=== PATIENT | male | born 1935 | race Caucasian/White ===

== ENCOUNTER 2017-06-16 15:09 | Outpatient (CLI) | payer MEDICARE, OTHER ==
[2017-06-16 14:27] LABS: BASOPHILS % (AUTO) 0.7 %; EOSINOPHILS # (AUTO) 0.5 10^3/uL (0.0-0.7); EOSINOPHILS % (AUTO) 7.4 %; HCT - HEMATOCRIT 42.9 % (42.0-52.0); HGB - HEMOGLOBIN 14.4 g/dL (14.0-18.0); LYMPHOCYTES # (AUTO) 1.6 10^3/uL (1.5-3.5); LYMPHOCYTES % (AUTO) 25.7 %; MEAN CORPUSCULAR HEMOGLOBIN 30.6 pg (27.0-31.0); MEAN CORPUSCULAR HGB CONC 33.4 g/dL (32.0-36.0); MEAN CORPUSCULAR VOLUME 91.4 fL (80.0-94.0); MEAN PLATELET VOLUME 9.2 fL (7.4-11.4); MONOCYTES # (AUTO) 0.6 10^3/uL (0.0-1.0); MONOCYTES % (AUTO) 9.1 %; NEUTROPHILS # (AUTO) 3.6 10^3/uL (1.5-6.6); NEUTROPHILS % (AUTO) 57.1 %; NUCLEATED RED BLOOD CELLS AUTO 0.1 /100WBC; RED CELL DISTRIBUTION WIDTH 13.6 % (12.0-15.0); UNCORRECTED WHITE BLOOD COUNT 6.3 x10^3/uL; WHITE BLOOD COUNT 6.3 x10^3/uL (4.8-10.8)
[2017-06-16 14:58] LABS: ALBUMIN/GLOBULIN RATIO 1.1 (1.0-2.2); BUN - BLOOD UREA NITROGEN 40 mg/dL (6-20); CALCIUM 9.8 mg/dL (8.5-10.3); CARBON DIOXIDE - CO2 29 mmol/L (21-32); CHLORIDE 103 mmol/L (101-111); CHOL/HDL RATIO 4.7 (<5.0); CHOLESTEROL 170 mg/dL; CREATININE 1.5 mg/dL (0.6-1.2); GFR - MDRD 45 (>89); GLUCOSE 107 mg/dL (70-100); HDL CHOLESTEROL 36 mg/dL; LDL/HDL RATIO 2.6 (<3.6); POTASSIUM 4.8 mmol/L (3.5-5.0); SODIUM 138 mmol/L (135-145); TOTAL PROTEIN 7.7 g/dL (6.7-8.2); TRIGLYCERIDES 212 mg/dL; VLDL CHOLESTEROL 42 mg/dL
[2017-06-16 15:10] LABS: HEMOGLOBIN A1C 0.52 g/dL
== END 2017-06-16 15:10 | disposition home or self-care (01) ==
LOC: LAB.WCP 15:09
PROVIDERS: ATTEND Family Medicine
DX: E83.52 Hypercalcemia (principal); Z79.899 Other long term (current) drug therapy; N28.9 Disorder of kidney and ureter, unspecified; I10 Essential (primary) hypertension; E03.9 Hypothyroidism, unspecified; R73.9 Hyperglycemia, unspecified; E78.5 Hyperlipidemia, unspecified
CPT/HCPCS: 36415; 80053; 80061; 83036; 84443; 85025

== ENCOUNTER 2017-12-22 17:29 | Inpatient (IN) | payer MEDICARE, OTHER ==
[2017-12-22] MEDS ORDERED: ALBUTEROL NEB 2.5 MG/3 ML INH STA (17:55)
[2017-12-22] MEDS: IPRATROPIUM/ALBUTEROL 3 ML NEB INH PRN (18:02)
[2017-12-22] MEDS ORDERED: cefTRIAXone 2 GM in SODIUM CHLORIDE 0.9% MINIBAG 100 ML IV STA (18:12)
[2017-12-22] MEDS ORDERED: VANCOMYCIN INJ 1.5 GM in SODIUM CHLORIDE 0.9% 500 ML IV STA (18:12)
[2017-12-22] MEDS ORDERED: OSELTAMIVIR 75 MG CAPSULE PO STA (18:14)
--- NOTE | 2017-12-22 18:14 | ED Physician Documentation ---
PD HPI CHEST PAIN - Stated complaint Stated Complaint: WEAK/COUGH - Chief complaint Chief Complaint: Resp - History obtained from History obtained from: Patient - History of Present Illness Timing - onset: Other ( sick with flu. He's been sick for 5 days with cough/ bodyaches. No measured fevers.) Timing - details: Abrupt onset Recently seen: Not recently seen Review of Systems Ten Systems: 10 systems reviewed and negative Constitutional: reports: Chills. denies: Fever Nose: denies: Rhinorrhea / runny nose Throat: denies: Sore throat Respiratory: reports: Dyspnea, Cough GI: denies: Abdominal Pain, Vomiting, Diarrhea PD PAST MEDICAL HISTORY - Allergies Allergies/Adverse Reactions: Allergies Allergy/AdvReac Type Severity Reaction Status Date / Time morphine Allergy Hallucinati Verified 12/22/17 17:39 ons - Family History Family history: reports: Non contributory PD ED PE NORMAL - Vitals Vital signs reviewed: Yes - General General: Alert and oriented X 3, No acute distress - HEENT HEENT: PERRL, EOMI - Neck Neck: Supple, no meningeal sign, No bony TTP - Cardiac Cardiac: RRR, No murmur - Respiratory Respiratory: Other (Profound rhonchi both bases, mildly labored.) - Abdomen Abdomen: Soft, Non tender - Back Back: No CVA TTP, No spinal TTP - Derm Derm: Normal color, Warm and dry - Extremities Extremities: No edema, No calf tenderness / cord - Neuro Neuro: Alert and oriented X 3, Normal speech - Psych Psych: Normal mood, Normal affect Results - Vitals Vitals: Vital Signs - 24 hr 12/22/17 12/22/17 12/22/17 17:34 17:50 18:06 Temperature 36.7 C Heart Rate 71 78 Respiratory 18 18 Rate Blood Pressure 100/57 L O2 Saturation 78 L 96 Oxygen O2 Source Non-rebreather mask Oxygen Flow Rate 15 PD MEDICAL DECISION MAKING - ED course ED course: 82-year-old gentleman with with influenza exposure presents with dyspnea and significant hypoxemia into the 70s on room air and findings of bilateral pneumonia. He is cultured up and started on Tamiflu presumptively. Started on Rocephin, Zithromax, vancomycin. Spoke with Dr. Gale for admission at 6: 15 PM. Departure - Departure Disposition: [facility] DC/Xfer Clinical Impression: Influenza, Hypoxemia Pneumonia Qualifiers: Laterality: bilateral Lung location: lower lobe of lung Condition: Serious
--- NOTE | 2017-12-22 18:21 | XRAY Report ---
EXAM: CHEST RADIOGRAPHY EXAM DATE: 12/22/2017 05:58 PM. CLINICAL HISTORY: Dyspnea. COMPARISON: None. TECHNIQUE: 1 view. FINDINGS: Lungs/Pleura: There is reticular opacity within the lower lungs. No evidence of effusion. Relative lukas cency within the upper lungs may reflect emphysema. There is no evidence of pneumothorax. Mediastinum: There is mild cardiomegaly. There is thoracic aortic calcification. Other: None. IMPRESSION: 1. There is mild cardiomegaly. 2. There is reticular opacity within the mid and lower lungs. Differential considerations include марина ma, infiltrates, and/or fibrosis. 3. There is no evidence of pneumothorax. [facility] Referring Provider Line: [phone] SITE ID: [id number]
[2017-12-22] MEDS ORDERED: ACETAMINOPHEN 325 MG TABLET PO PRN (18:25)
[2017-12-22] MEDS ORDERED: ONDANSETRON 4 MG/2 ML VIAL IVP PRN (18:25)
[2017-12-22] MEDS ORDERED: TEMAZEPAM 15 MG CAPSULE PO PRN (18:25)
[2017-12-22 18:32] LABS: BASOPHILS % (AUTO) 0.2 %; HGB - HEMOGLOBIN 14.1 g/dL (14.0-18.0); LYMPHOCYTES # (AUTO) 1.4 10^3/uL (1.5-3.5); LYMPHOCYTES % (AUTO) 11.4 %; MEAN CORPUSCULAR VOLUME 87.9 fL (80.0-94.0); MEAN PLATELET VOLUME 8.3 fL (7.4-11.4); MONOCYTES # (AUTO) 0.9 10^3/uL (0.0-1.0); NEUTROPHILS % (AUTO) 81.4 %; PLT - PLATELET COUNT 186 10^3/uL (130-450); RED BLOOD COUNT 4.86 10^6/uL (4.70-6.10); RED CELL DISTRIBUTION WIDTH 13.7 % (12.0-15.0); WHITE BLOOD COUNT 12.2 x10^3/uL (4.8-10.8)
[2017-12-22 18:42] LABS: ALBUMIN 3.7 g/dL (3.2-5.5); ALBUMIN/GLOBULIN RATIO 0.8 (1.0-2.2); BILIRUBIN,TOTAL 0.9 mg/dL (0.2-1.0); CALCIUM 8.9 mg/dL (8.5-10.3); CREATININE 2.5 mg/dL (0.6-1.2); TOTAL PROTEIN 8.1 g/dL (6.7-8.2)
[2017-12-22] MEDS ORDERED: VANCOMYCIN PER PHARMACY 100 GM in SODIUM CHLORIDE 0.9% 250 ML IV SCH (19:00)
[2017-12-22] MEDS ORDERED: VANCOMYCIN 1 GM VIAL ONE (19:17)
[2017-12-22] MEDS ORDERED: WATER FOR INJECTION,STERILE 40 ML ONE (19:19)
[2017-12-22] MEDS: AZITHROMYCIN INJ 500 MG in SODIUM CHLORIDE 0.9% 250 ML IV SCH (22:31)
[2017-12-22] MEDS: guaiFENesin 600 MG TABLET PO SCH (22:31)
[2017-12-22] MEDS: DEXTROSE 5%-0.9% NACL 1,000 ML IV SCH (22:32)
[2017-12-23] MEDS: SODIUM CHLORIDE FLUSH 0.9% 10 ML SYRINGE IVP SCH ×3 (01:25→19:49)
[2017-12-23] MEDS: LEVOTHYROXINE 75 MCG TABLET PO SCH (06:15)
[2017-12-23 06:37] LABS: BASOPHILS % (AUTO) 0.1 %; HGB - HEMOGLOBIN 12.1 g/dL (14.0-18.0); LYMPHOCYTES # (AUTO) 1.2 10^3/uL (1.5-3.5); MEAN CORPUSCULAR HEMOGLOBIN 28.8 pg (27.0-31.0); MEAN CORPUSCULAR HGB CONC 32.5 g/dL (32.0-36.0); MEAN CORPUSCULAR VOLUME 88.6 fL (80.0-94.0); MEAN PLATELET VOLUME 8.4 fL (7.4-11.4); MONOCYTES # (AUTO) 0.6 10^3/uL (0.0-1.0); NEUTROPHILS # (AUTO) 7.6 10^3/uL (1.5-6.6); NEUTROPHILS % (AUTO) 80.9 %; PLT - PLATELET COUNT 164 10^3/uL (130-450); RED BLOOD COUNT 4.21 10^6/uL (4.70-6.10); RED CELL DISTRIBUTION WIDTH 13.7 % (12.0-15.0); WHITE BLOOD COUNT 9.4 x10^3/uL (4.8-10.8)
[2017-12-23 06:58] LABS: CALCIUM 8.3 mg/dL (8.5-10.3); CREATININE 1.6 mg/dL (0.6-1.2)
[2017-12-23] MEDS: OSELTAMIVIR 30 MG CAPSULE PO SCH ×2 (09:17→20:04)
[2017-12-23] MEDS: guaiFENesin 600 MG TABLET PO SCH ×2 (09:17→20:04)
[2017-12-23] MEDS: FAMOTIDINE 20 MG TABLET PO SCH (09:18)
[2017-12-23] MEDS: POLYETHYLENE GLYCOL 3350 17 GM PACKET PO SCH (09:20)
[2017-12-23] MEDS: DEXTROSE 5%-0.9% NACL 1,000 ML IV SCH ×2 (09:21→19:55)
[2017-12-23] MEDS: SACCHAROMYCES BOULARDII 250 MG CAPSULE PO SCH ×2 (15:49→19:49)
[2017-12-23] MEDS: IPRATROPIUM/ALBUTEROL 3 ML NEB INH PRN (17:10)
[2017-12-23] MEDS: cefTRIAXone 2 GM in SODIUM CHLORIDE 0.9% MINIBAG 100 ML IV SCH (17:12)
--- NOTE | 2017-12-23 18:54 | PROVIDER PROGRESS NOTE ---
Assessment/Plan - Problem List (1) Community acquired pneumonia Qualifiers: Lung location: unspecified part of lung Assessment/Plan: Clinical improvement and no fever since admitted. Continue empiric antibiotics iv Zithromax and iv Ceftriaxone, supplemental oxygen, and cough management. Will recheck a CXR tomorrow. (2) Traveler's diarrhea Assessment/Plan: Stable or improving. Continue clear liquids and add Florastor since neg for C diff and bacteria. (3) Influenza B Assessment/Plan: Continue Tamiflu, follow LFTs (4) Cardiomegaly Assessment/Plan: Echo report showed normal LV size and LVEF, also normal RV size and no pericardial effusion, to explain cardiomegaly seen by CXR. - Current Meds Current Meds: Current Medications Generic Name Dose Route Start Last Admin Trade Name Freq PRN Reason Stop Dose Admin Albuterol/Ipratropium 3 ml 12/22/17 17:56 12/23/17 17:10 Duoneb INH 3 ml Q4HR PRN Administration Wheezing Famotidine 20 mg 12/23/17 09:00 12/23/17 09:18 Pepcid PO 20 mg DAILY OSCAR Administration Guaifenesin 600 mg 12/22/17 21:00 12/23/17 09:17 Mucinex PO 600 mg BID OSCAR Administration Dextrose/Sodium Chloride 1,000 mls @ 100 mls/hr 12/22/17 19:00 12/23/17 09:21 D5ns IV 100 mls/hr .Q10H OSCAR Administration Ceftriaxone Sodium 2 gm/ 100 mls @ 200 mls/hr 12/23/17 18:00 12/23/17 18:17 Sodium Chloride IV Infused Q24H OSCAR Infusion Azithromycin 500 mg/ Sodium 250 mls @ 250 mls/hr 12/22/17 20:00 12/23/17 02: 12 Chloride IV Infused Q24H OSCAR Infusion Levothyroxine Sodium 150 mcg 12/23/17 07:00 12/23/17 06:15 Synthroid PO 150 mcg QDAC OSCAR Administration Oseltamivir Phosphate 30 mg 12/23/17 09:00 12/23/17 09:17 Tamiflu PO 30 mg BID OSCAR Administration Polyethylene Glycol 17 gm 12/23/17 09:00 12/23/17 09:20 Miralax PO Not Given DAILY OSCAR Saccharomyces Boulardii 250 mg 12/23/17 15:00 12/23/17 15:49 Florastor PO 250 mg BIDWM OSCAR Administration Sodium Chloride 10 ml 12/23/17 01:00 12/23/17 09:06 Normal Saline Flush 0.9% IVP Not Given 0100,0900,1700 OSCAR - Lab Result Fish Bone Diagrams: 12/23/17 06:00 12/23/17 06:00 - Additional Planning My Orders: My Active Orders 12/22/17 18:48 oxyCODONE/ACET 5/325 [Percocet 5 mg/325 mg] 1 tab PO DAILY PRN 12/22/17 18:52 guaiFENesin/CODEINE [Robitussin AC] 5 ml PO QID PRN 12/22/17 20:00 Azithromycin Inj [Zithromax Inj] 500 mg Sodium Chloride 0.9% [Normal Saline 0.9%] 250 ml IV Q24H 12/22/17 21:00 guaiFENesin [Mucinex] 600 mg PO BID 12/23/17 00:35 RT [Nebulizer/MDI Tx.] [RC] .Q4PRN 12/23/17 01:30 CULTURE, STOOL [RM] Stat 12/23/17 07:00 Echo Transthoracic Complete [ECHO] Routine Levothyroxine [Synthroid] 150 mcg PO QDAC 12/23/17 07:43 CUL, RESPIRATORY [RM] Routine 12/23/17 09:00 Oseltamivir [Tamiflu] 30 mg PO BID 12/23/17 15:00 Saccharomyces Boulardii [Florastor] 250 mg PO BIDWM 12/23/17 18:00 cefTRIAXone [Rocephin] 2 gm Sodium Chloride 0.9% Minibag [Normal Saline 0.9% Minibag] 100 ml IV Q24H 12/24/17 Chest 1 View X-Ray [XR] Routine 12/24/17 05:00 BMP - BASIC METABOLIC PANEL [CHEM] DAILYLAB Subjective - Subjective Patient Reports: Feeling Better, Resting Comfortably, Other (Less cough and hoarseness. No further BMs since the soft one near admission time.) Nursing Reports: Other (Still desaturates to 70's on R.A.) Objective Vital Signs: Vital Signs - 24 hr 12/22/17 12/22/17 12/22/17 19:34 19:54 23:58 Temperature 36.8 C 37.2 C Heart Rate 77 Heart Rate [ 78 73 Brachial] Respiratory 22 16 18 Rate Blood Pressure 110/70 Blood Pressure 120/62 119/61 [Right Brachial artery] O2 Saturation 98 96 95 12/23/17 12/23/17 12/23/17 08:24 10:45 11:08 Temperature 36.7 C Heart Rate 75 Heart Rate [ 61 Brachial] Respiratory 20 20 18 Rate Blood Pressure Blood Pressure 115/58 L [Right Brachial artery] O2 Saturation 95 94 12/23/17 12/23/17 16:00 17:10 Temperature 36.9 C Heart Rate 60 Heart Rate [ 62 Brachial] Respiratory 18 12 Rate Blood Pressure Blood Pressure 126/79 [Right Brachial artery] O2 Saturation 97 Oxygen O2 Source Oxymask I&O (Last 24 Hrs): Intake and Output Totals x24h 12/21/17 12/22/17 12/23/17 23:59 23:59 23:59 Intake Total 600 2580 Output Total 425 375 Balance 175 2205 General: Alert, Oriented x3, Other (Still on O2 via oximizer and mask) HEENT: Atraumatic, Mucous membr. moist/pink Neck: Supple, No JVD Neuro: Non Focal Cardiovascular: Regular rate, No murmurs Respiratory: Other (Diminished, but no wheezes or rales) Abdomen: Soft Extremities: No edema - Results Results: Laboratory Results WBC 9.4 x10^3/uL (4.8-10.8) 12/23/17 06:00 RBC 4.21 10^6/uL (4.70-6.10) L 12/23/17 06:00 Hgb 12.1 g/dL (14.0-18.0) L 12/23/17 06:00 Hct 37.3 % (42.0-52.0) L 12/23/17 06:00 MCV 88.6 fL (80.0-94.0) 12/23/17 06:00 MCH 28.8 pg (27.0-31.0) 12/23/17 06:00 MCHC 32.5 g/dL (32.0-36.0) 12/23/17 06:00 RDW 13.7 % (12.0-15.0) 12/23/17 06:00 Plt Count 164 10^3/uL (130-450) 12/23/17 06:00 MPV 8.4 fL (7.4-11.4) 12/23/17 06:00 Neut # 7.6 10^3/uL (1.5-6.6) H 12/23/17 06:00 Lymph # 1.2 10^3/uL (1.5-3.5) L 12/23/17 06:00 [place] # 0.6 10^3/uL (0.0-1.0) 12/23/17 06:00 Eos # 0.0 10^3/uL (0.0-0.7) 12/23/17 06:00 Baso # 0.0 10^3/uL (0.0-0.1) 12/23/17 06:00 Absolute Nucleated RBC 0.00 x10^3/uL 12/23/17 06:00 Nucleated RBC % 0.0 /100WBC 12/23/17 06:00 Sodium 129 mmol/L (135-145) L 12/23/17 06:00 Potassium 3.8 mmol/L (3.5-5.0) 12/23/17 06:00 Chloride 95 mmol/L (101-111) L 12/23/17 06:00 Carbon Dioxide 25 mmol/L (21-32) 12/23/17 06:00 Anion Gap 9.0 (6-13) 12/23/17 06:00 BUN 49 mg/dL (6-20) H 12/23/17 06:00 Creatinine 1.6 mg/dL (0.6-1.2) H 12/23/17 06:00 Estimated GFR (MDRD) 41 (>89) L 12/23/17 06:00 Glucose 114 mg/dL (70-100) H 12/23/17 06:00 Lactic Acid 1.8 mmol/L (0.5-2.2) 12/22/17 18:21 Calcium 8.3 mg/dL (8.5-10.3) L 12/23/17 06:00 Total Bilirubin 0.9 mg/dL (0.2-1.0) 12/22/17 18:21 AST 37 IU/L (10-42) 12/22/17 18:21 ALT 20 IU/L (10-60) 12/22/17 18:21 Alkaline Phosphatase 51 IU/L (42-121) 12/22/17 18:21 Total Protein 8.1 g/dL (6.7-8.2) 12/22/17 18:21 Albumin 3.7 g/dL (3.2-5.5) 12/22/17 18:21 Globulin 4.4 g/dL (2.1-4.2) H 12/22/17 18:21 Albumin/Globulin Ratio 0.8 (1.0-2.2) L 12/22/17 18:21 Lipase 14 U/L (22-51) L 12/22/17 18:21 Influenza A (Rapid) Negative (Negative) 12/22/17 18:12 Influenza B (Rapid) POSITIVE (Negative) H 12/22/17 18:12 Influenza Types A,B Ag + H 12/22/17 18:12
[2017-12-23] MEDS: AZITHROMYCIN INJ 500 MG in SODIUM CHLORIDE 0.9% 250 ML IV SCH (19:56)
--- NOTE | 2017-12-23 20:31 | HISTORY & PHYSICAL EXAMINATION ---
DATE OF SERVICE: 12/22/2017 Physician: Katelynn Briseno MD HISTORY OF PRESENT ILLNESS: This is an 82-year-old white male with a negative past medical history who traveled to [facility], with his and developed a URI on the return trip, as well as diarrhea. There were low grade fevers. The patient's later developed a URI and asthmatic bronchitis bad enough to be admitted here as an inpatient. He has visited her in the hospital. Today, he developed marked shortness of breath while in the 's hospital room and needed to be taken by wheelchair to our emergency room where he was found to have a respiratory rate of 28 and oxygen saturation in the 70's% on room air. He required a rebreather mask and is being admitted for respiratory distress. He has had diarrhea with loose stool but no blood, and it just started to have more form today. There was a high-grade fever some time today with chills, but it was not documented how high. PAST MEDICAL HISTORY: Negative. MEDICATIONS AT HOME: None. ALLERGIES: MORPHINE. SOCIAL HISTORY: The patient is a retired [employer] truck driver. The patient quit smoking over 40 years ago, drinks very rare alcohol, and uses no illicit drugs. FAMILY HISTORY: No inherited diseases. PHYSICAL EXAMINATION GENERAL: A white male who appears younger than his age of 82. He is in mild to moderate respiratory distress with a hoarse voice, coughing with a dry cough and is wearing a rebreather oxygen mask. VITAL SIGNS: Blood pressure 110/70, heart rate 77 in sinus rhythm, afebrile, room air saturation 78%, increased to 96% on a 50% nonrebreather mask. HEENT: With the mask as above. Oral mucosa is dry. NECK: Shows no JVD supine. No carotid bruits. CHEST: Diminished breath sounds diffusely but there are no wheezes or rales. HEART: Sounds are normal and distant. ABDOMEN: Soft with negative bowel sounds, nontender. EXTREMITIES: No clubbing, cyanosis or edema. NEUROLOGIC: Grossly intact. LABORATORY DATA: Sodium 125, potassium 4.2, BUN 58, creatinine 2.5. There is no baseline creatinine at this hospital. Lactic acid 1.8. Normal liver tests. Lipase normal at 14. White blood count 12.2 with a left shift, hemoglobin 14.1, platelet count normal at 186. Serology showed positive influenza B (his has this as well). Chest x-ray: Bilateral infiltrates. Cardiomegaly. EKG: Normal sinus rhythm and without acute changes. IMPRESSION/DIAGNOSES 1. Community-acquired pneumonia, bilateral. 2. Travelers' diarrhea. 3. Influenza B 4. Hyponatremia. 5. Acute Kidney Injury 6. Cardiomegaly on chest x-ray. PLAN: Admit the patient to inpatient status. Begin IV fluids using normal saline for treating the hyponatremia. Begin a clear liquid diet because of the diarrhea. Advance the diet as tolerated. Obtain sputum and blood cultures. Start empiric antibiotics for community-acquired pneumonia using Ceftriaxone and Zithromax IV. Treat the cough with Mucinex and/ or Robitussin-AC. Begin Tamiflu for the positive influenza. Check the stool for C difficile and bacteria by cultures. Increase activity as tolerated when he feels better. DEEP VENOUS THROMBOSIS PROPHYLAXIS: SCDs. CODE STATUS: FULL CODE. ATTESTATION: The patient is expected to be discharged or transferred to another facility within 96 hours: Yes. TD: 12/23/2017 20:30 MIGUEL
[2017-12-23] MEDS: oxyCOD/ACETAMIN 5 MG/325 MG TABLET PO PRN (23:51)
[2017-12-24] MEDS: SODIUM CHLORIDE FLUSH 0.9% 10 ML SYRINGE IVP SCH ×3 (01:51→18:52)
[2017-12-24] MEDS: guaiFENesin/CODEINE 5 ML UDC PO PRN ×2 (03:58→13:58)
[2017-12-24 06:07] LABS: CALCIUM 8.4 mg/dL (8.5-10.3); CREATININE 0.9 mg/dL (0.6-1.2)
[2017-12-24] MEDS: LEVOTHYROXINE 75 MCG TABLET PO SCH (06:21)
[2017-12-24] MEDS: DEXTROSE 5%-0.9% NACL 1,000 ML IV SCH ×3 (06:24→19:35)
[2017-12-24] MEDS: oxyCOD/ACETAMIN 5 MG/325 MG TABLET PO PRN ×2 (06:35→22:56)
[2017-12-24] MEDS: POLYETHYLENE GLYCOL 3350 17 GM PACKET PO SCH (08:53)
[2017-12-24] MEDS: FAMOTIDINE 20 MG TABLET PO SCH (08:53)
[2017-12-24] MEDS: OSELTAMIVIR 30 MG CAPSULE PO SCH ×2 (08:53→21:02)
[2017-12-24] MEDS: SACCHAROMYCES BOULARDII 250 MG CAPSULE PO SCH ×2 (08:53→17:14)
[2017-12-24] MEDS: guaiFENesin 600 MG TABLET PO SCH ×2 (08:53→21:01)
--- NOTE | 2017-12-24 10:48 | PROVIDER PROGRESS NOTE ---
Assessment/Plan - Problem List (1) Community acquired pneumonia Qualifiers: Lung location: unspecified part of lung Assessment/Plan: Continue antibiotics. Assess with activity. Poss DCh tomorrow with po antibiotics (2) Traveler's diarrhea Assessment/Plan: Better Will advance diet (3) Influenza B Assessment/Plan: Continue Tamiflu for a 7 day course. (4) ARF (acute renal failure) Assessment/Plan: Improved with iv hydration. Will decrease iv rate, and try hydration orally, if diarrhea and abdominal sx are better. - Current Meds Current Meds: Current Medications Generic Name Dose Route Start Last Admin Trade Name Freq PRN Reason Stop Dose Admin Albuterol/Ipratropium 3 ml 12/22/17 17:56 12/23/17 17:10 Duoneb INH 3 ml Q4HR PRN Administration Wheezing Famotidine 20 mg 12/23/17 09:00 12/24/17 08:53 Pepcid PO 20 mg DAILY OSCAR Administration Guaifenesin 600 mg 12/22/17 21:00 12/24/17 08:53 Mucinex PO 600 mg BID OSCAR Administration Guaifenesin/Codeine Phosphate 5 ml 12/22/17 18:52 12/24/17 03:58 Robitussin Ac PO 5 ml QID PRN Administration Cough Dextrose/Sodium Chloride 1,000 mls @ 100 mls/hr 12/22/17 19:00 12/24/17 06:24 D5ns IV 100 mls/hr .Q10H OSCAR Administration Ceftriaxone Sodium 2 gm/ 100 mls @ 200 mls/hr 12/23/17 18:00 12/23/17 18:17 Sodium Chloride IV Infused Q24H OSCAR Infusion Azithromycin 500 mg/ Sodium 250 mls @ 250 mls/hr 12/22/17 20:00 12/23/17 23: 00 Chloride IV Infused Q24H OSCAR Infusion Levothyroxine Sodium 150 mcg 12/23/17 07:00 12/24/17 06:21 Synthroid PO 150 mcg QDAC OSCAR Administration Oseltamivir Phosphate 30 mg 12/23/17 09:00 12/24/17 08:53 Tamiflu PO 30 mg BID OSCAR Administration Oxycodone/Acetaminophen 1 tab 12/22/17 18:48 12/24/17 06:35 Percocet 5 Mg/325 Mg PO 1 tab DAILY PRN Administration PAIN Polyethylene Glycol 17 gm 12/23/17 09:00 12/24/17 08:53 Miralax PO Not Given DAILY OSCAR Saccharomyces Boulardii 250 mg 12/23/17 15:00 12/24/17 08:53 Florastor PO 250 mg BIDWM OSCAR Administration Sodium Chloride 10 ml 12/23/17 01:00 12/24/17 08:53 Normal Saline Flush 0.9% IVP Not Given 0100,0900,1700 OSCAR - Lab Result Fish Bone Diagrams: 12/23/17 06:00 12/24/17 05:28 - Additional Planning My Orders: My Active Orders 12/23/17 15:00 Saccharomyces Boulardii [Florastor] 250 mg PO BIDWM 12/23/17 18:00 cefTRIAXone [Rocephin] 2 gm Sodium Chloride 0.9% Minibag [Normal Saline 0.9% Minibag] 100 ml IV Q24H 12/24/17 05:45 Chest 1 View X-Ray [XR] Routine 12/24/17 Lunch DIET [Soft (Low Fiber) Diet] [DIET] Subjective - Subjective Patient Reports: Feeling Better Nursing Reports: No Complaints Objective Vital Signs: Vital Signs - 24 hr 12/23/17 12/23/17 12/23/17 11:08 16:00 17:10 Temperature 36.9 C Heart Rate 60 Heart Rate [ 62 Brachial] Respiratory 18 18 12 Rate Blood Pressure 126/79 [Right Brachial artery] O2 Saturation 94 97 12/23/17 12/23/17 12/24/17 19:10 23:35 07:44 Temperature 36.2 C L 36.4 C L Heart Rate 62 Heart Rate [ 69 73 Brachial] Respiratory 16 16 20 Rate Blood Pressure 131/58 H 108/60 [Right Brachial artery] O2 Saturation 95 95 Oxygen O2 Source Oxymask I&O (Last 24 Hrs): Intake and Output Totals x24h 12/22/17 12/23/17 12/24/17 23:59 23:59 23:59 Intake Total 600 4530 1390 Output Total 049 820 1985 Balance 175 4155 340 General: Alert HEENT: Mucous membr. moist/pink Neck: Supple, No JVD Neuro: Non Focal Cardiovascular: Regular rate, No murmurs Respiratory: Other (Prolonged expiratory phase. L base fine rales. Still appears SOB when speaking on R.A.) Abdomen: Soft Extremities: No edema - Results Results: Laboratory Results WBC 9.4 x10^3/uL (4.8-10.8) 12/23/17 06:00 RBC 4.21 10^6/uL (4.70-6.10) L 12/23/17 06:00 Hgb 12.1 g/dL (14.0-18.0) L 12/23/17 06:00 Hct 37.3 % (42.0-52.0) L 12/23/17 06:00 MCV 88.6 fL (80.0-94.0) 12/23/17 06:00 MCH 28.8 pg (27.0-31.0) 12/23/17 06:00 MCHC 32.5 g/dL (32.0-36.0) 12/23/17 06:00 RDW 13.7 % (12.0-15.0) 12/23/17 06:00 Plt Count 164 10^3/uL (130-450) 12/23/17 06:00 MPV 8.4 fL (7.4-11.4) 12/23/17 06:00 Neut # 7.6 10^3/uL (1.5-6.6) H 12/23/17 06:00 Lymph # 1.2 10^3/uL (1.5-3.5) L 12/23/17 06:00 [place] # 0.6 10^3/uL (0.0-1.0) 12/23/17 06:00 Eos # 0.0 10^3/uL (0.0-0.7) 12/23/17 06:00 Baso # 0.0 10^3/uL (0.0-0.1) 12/23/17 06:00 Absolute Nucleated RBC 0.00 x10^3/uL 12/23/17 06:00 Nucleated RBC % 0.0 /100WBC 12/23/17 06:00 Sodium 133 mmol/L (135-145) L 12/24/17 05:28 Potassium 3.7 mmol/L (3.5-5.0) 12/24/17 05:28 Chloride 100 mmol/L (101-111) L 12/24/17 05:28 Carbon Dioxide 28 mmol/L (21-32) 12/24/17 05:28 Anion Gap 5.0 (6-13) L 12/24/17 05:28 BUN 23 mg/dL (6-20) H 12/24/17 05:28 Creatinine 0.9 mg/dL (0.6-1.2) 12/24/17 05:28 Estimated GFR (MDRD) 81 (>89) L 12/24/17 05:28 Glucose 130 mg/dL (70-100) H 12/24/17 05:28 Lactic Acid 1.8 mmol/L (0.5-2.2) 12/22/17 18:21 Calcium 8.4 mg/dL (8.5-10.3) L 12/24/17 05:28 Total Bilirubin 0.9 mg/dL (0.2-1.0) 12/22/17 18:21 AST 37 IU/L (10-42) 12/22/17 18:21 ALT 20 IU/L (10-60) 12/22/17 18:21 Alkaline Phosphatase 51 IU/L (42-121) 12/22/17 18:21 Total Protein 8.1 g/dL (6.7-8.2) 12/22/17 18:21 Albumin 3.7 g/dL (3.2-5.5) 12/22/17 18:21 Globulin 4.4 g/dL (2.1-4.2) H 12/22/17 18:21 Albumin/Globulin Ratio 0.8 (1.0-2.2) L 12/22/17 18:21 Lipase 14 U/L (22-51) L 12/22/17 18:21 Influenza A (Rapid) Negative (Negative) 12/22/17 18:12 Influenza B (Rapid) POSITIVE (Negative) H 12/22/17 18:12 Influenza Types A,B Ag + H 12/22/17 18:12
--- NOTE | 2017-12-24 15:30 | XRAY Preliminary Report ---
Exam: XR CHEST 1 VIEW X-RAY IMPRESSION: No significant interval change in the diffuse irregular opacities throughout both lung ba ses. [facility] SITE ID: [id number]
--- NOTE | 2017-12-24 15:30 | XRAY Report ---
EXAM: CHEST RADIOGRAPHY EXAM DATE: 12/24/2017 06:12 AM. CLINICAL HISTORY: F/U infiltrates and cardiomegaly. COMPARISON: Chest radiograph dated 12/22/2017. TECHNIQUE: 1 view. FINDINGS: Lungs/Pleura: Diffuse irregular opacities in the lung bases, similar to the prior examination. Mediastinum: The heart is mildly enlarged. The borders are silhouetted by adjacent airspace process. Other: None. IMPRESSION: No significant interval change in the diffuse irregular opacities throughout both lung ba ses. [facility] Referring Provider Line: [phone] SITE ID: [id number]
[2017-12-24] MEDS ORDERED: diltiaZEM INJ 5 MG/ML VIAL IVP ONE (16:58)
--- NOTE | 2017-12-24 18:10 | XRAY Report ---
EXAM: CHEST RADIOGRAPHY EXAM DATE: 12/24/2017 05:37 PM. CLINICAL HISTORY: New Afib w/ RVR, F/U pneumonia. COMPARISON: 12/24/2017 at 557. TECHNIQUE: 1 view. FINDINGS: Lungs/Pleura: There is bilateral moderate interstitial and alveolar airspace opacity. The lungs appea r without significant interval change. Stable lung volumes. There is a calcified nodule in the left a pex. No pneumothorax. Mediastinum: Heart size within normal limits. Trachea is midline. Other: None. IMPRESSION: 1. Bilateral airspace disease consistent with pneumonia, edema or aspiration, and/or fibrosis [facility] ed. [facility] Referring Provider Line: [phone] SITE ID: [id number]
[2017-12-24] MEDS: ASPIRIN EC 81 MG TABLET PO SCH (18:52)
[2017-12-24] MEDS: METOPROLOL SUCCINATE 50 MG TABLET PO SCH (18:52)
[2017-12-24] MEDS: cefTRIAXone 2 GM in SODIUM CHLORIDE 0.9% MINIBAG 100 ML IV SCH (19:44)
[2017-12-24] MEDS ORDERED: diltiaZEM INJ 5 MG/ML VIAL IVP SCH (20:30)
[2017-12-24] MEDS: AZITHROMYCIN INJ 500 MG in SODIUM CHLORIDE 0.9% 250 ML IV SCH (20:47)
[2017-12-24] MEDS: SODIUM CHLORIDE FLUSH 0.9% 10 ML SYRINGE IVP PRN (21:12)
[2017-12-25] MEDS: IPRATROPIUM/ALBUTEROL 3 ML NEB INH PRN ×3 (00:10→17:55)
[2017-12-25] MEDS: SODIUM CHLORIDE FLUSH 0.9% 10 ML SYRINGE IVP SCH ×3 (05:02→20:34)
[2017-12-25] MEDS: LEVOTHYROXINE 75 MCG TABLET PO SCH (06:47)
[2017-12-25] MEDS: POLYETHYLENE GLYCOL 3350 17 GM PACKET PO SCH (08:52)
[2017-12-25] MEDS: SACCHAROMYCES BOULARDII 250 MG CAPSULE PO SCH ×2 (09:31→20:34)
[2017-12-25] MEDS: METOPROLOL SUCCINATE 50 MG TABLET PO SCH (09:31)
[2017-12-25] MEDS: guaiFENesin 600 MG TABLET PO SCH ×2 (09:31→20:34)
[2017-12-25] MEDS: FAMOTIDINE 20 MG TABLET PO SCH (09:31)
[2017-12-25] MEDS: ASPIRIN EC 81 MG TABLET PO SCH ×2 (09:31→14:45)
[2017-12-25] MEDS: OSELTAMIVIR 30 MG CAPSULE PO SCH ×2 (09:31→20:34)
[2017-12-25] MEDS ORDERED: FUROSEMIDE 20 MG/2 ML VIAL IVP ONE (10:15)
[2017-12-25] MEDS: SODIUM CHLORIDE FLUSH 0.9% 10 ML SYRINGE IVP PRN ×2 (10:28→21:40)
[2017-12-25] MEDS: VANCOMYCIN INJ 1 GM in SODIUM CHLORIDE 0.9% 250 ML IV SCH (11:19)
[2017-12-25] MEDS ORDERED: levoFLOXacin 750 MG/150 ML 750 MG/150 ML BAG IV SCH (16:00)
--- NOTE | 2017-12-25 16:10 | PROVIDER PROGRESS NOTE ---
Assessment/Plan - Problem List (1) Community acquired pneumonia Qualifiers: Lung location: unspecified part of lung Assessment/Plan: Chest PT ordered, and with this he finally was able to expectorate today and has less SOB. Will broaden antibiotic coverage, since he is not responding clinically (still alot of sputum and requiring alot of O2): add Vanco iv. (2) Traveler's diarrhea Assessment/Plan: Still soft/loose stool, but tolerating a soft diet. W/U was neg for C. diff and bacteria (3) Influenza B Assessment/Plan: On Tamiflu, Day #3 (4) Paroxysmal atrial fibrillation with RVR Assessment/Plan: Rhythm converted to ectopic atrial pacemaker then to NSR, after po Metoprolol Succ restarted. Pt on ASA for CHADS score 1. Trops were elevated but declining, therefore not the cause of the Afib. Yesterday, he remembered that paroxysmal Afib with RVR has occurred in the past , but has been controlled once he was put on Metoprolol ER. (5) Nightmares Assessment/Plan: No other focal deficits. Will stop Rocephin, Zithromax (substitute with Levaquin), and also stop Histamin anny, and codeine containing meds. (6) ARF (acute renal failure) Assessment/Plan: Resolved with iv hydration - Current Meds Current Meds: Current Medications Generic Name Dose Route Start Last Admin Trade Name Freq PRN Reason Stop Dose Admin Albuterol/Ipratropium 3 ml 12/22/17 17:56 12/25/17 07:16 Duoneb INH 3 ml Q4HR PRN Administration Wheezing Aspirin 81 mg 12/25/17 09:30 12/25/17 09:31 Ecotrin PO 81 mg DAILY OSCAR Administration Guaifenesin 600 mg 12/22/17 21:00 12/25/17 09:31 Mucinex PO 600 mg BID OSCAR Administration Vancomycin HCl 1 gm/ Sodium 250 mls @ 167 mls/hr 12/25/17 12:00 12/25/17 14: 15 Chloride IV Infused Q12H OSCAR Infusion Levothyroxine Sodium 150 mcg 12/23/17 07:00 12/25/17 06:47 Synthroid PO 150 mcg QDAC OSCAR Administration Metoprolol Succinate 100 mg 12/24/17 19:00 12/25/17 09:31 Toprol Xl PO 100 mg DAILY OSCAR Administration Oseltamivir Phosphate 30 mg 12/23/17 09:00 12/25/17 09:31 Tamiflu PO 30 mg BID OSCAR Administration Oxycodone/Acetaminophen 1 tab 12/24/17 21:55 12/24/17 22:56 Percocet 5 Mg/325 Mg PO 1 tab Q6H PRN Administration PAIN Polyethylene Glycol 17 gm 12/23/17 09:00 12/25/17 08:52 Miralax PO Not Given DAILY OSCAR Saccharomyces Boulardii 250 mg 12/23/17 15:00 12/25/17 09:31 Florastor PO 250 mg BIDWM OSCAR Administration Sodium Chloride 10 ml 12/22/17 18:25 12/25/17 10:28 Normal Saline Flush 0.9% IVP 20 ml PRN PRN Administration NEEDED PER PROVIDER ORDERS Sodium Chloride 10 ml 12/23/17 01:00 12/25/17 08:53 Normal Saline Flush 0.9% IVP Not Given 0100,0900,1700 OSCAR - Lab Result Fish Bone Diagrams: 12/23/17 06:00 12/24/17 05:28 - Additional Planning My Orders: My Active Orders 12/24/17 15:52 Telemetry- [RC] Q4HR 12/24/17 17:25 EKG - Electrocardiogram [RC] .ONCE 12/24/17 19:00 Metoprolol Succinate [Toprol Xl] 100 mg PO DAILY 12/25/17 09:30 Aspirin EC [Ecotrin] 81 mg PO DAILY 12/25/17 10:18 CPT - Chest Physical Therapy [RC] TID 12/25/17 12:00 Vancomycin Inj [Vancomycin] 1 gm Sodium Chloride 0.9% [Normal Saline 0.9%] 250 ml IV Q12H 12/25/17 12:02 CUL, RESPIRATORY [RM] Urgent 12/25/17 16:00 levoFLOXacin 750 MG/150 ML [Levaquin 750 mg/150 ml] 750 mg in 150 ml IV Q24H 12/27/17 11:30 VANCOMYCIN TROUGH [CHEM] Timed Subjective - Subjective Patient Reports: Cough, Other (Pt had terrible nightmares over night and again when napping today, never had these before, no other neurol complaints.) Objective Vital Signs: Vital Signs - 24 hr 04/10/1212/24/17 12/24/17 17:12 17:34 17:39 Temperature Heart Rate Heart Rate [ 120 H 99 Brachial] Respiratory Rate Blood Pressure 128/78 Blood Pressure 151/68 H 139/70 H [Right Brachial artery] O2 Saturation 12/24/17 12/24/17 12/24/17 17:45 18:45 19:00 Temperature 37.6 C H Heart Rate 78 Heart Rate [ 80 133 H Brachial] Respiratory 20 Rate Blood Pressure Blood Pressure 140/76 H 131/84 H [Right Brachial artery] O2 Saturation 92 12/24/17 12/24/17 12/24/17 21:11 21:15 21:20 Temperature Heart Rate Heart Rate [ 117 H 129 H Brachial] Respiratory Rate Blood Pressure 120/79 Blood Pressure 133/82 H 132/67 H [Right Brachial artery] O2 Saturation 12/24/17 12/24/17 12/24/17 21:30 21:45 22:00 Temperature Heart Rate Heart Rate [ 128 H 131 H 124 H Brachial] Respiratory Rate Blood Pressure Blood Pressure 112/80 122/81 H 108/80 [Right Brachial artery] O2 Saturation 12/24/17 12/24/17 12/24/17 22:15 22:45 23:00 Temperature 37.0 C Heart Rate Heart Rate [ 78 81 76 Brachial] Respiratory 18 18 20 Rate Blood Pressure Blood Pressure 132/63 H 132/63 H 125/74 [Right Brachial artery] O2 Saturation 92 92 12/25/17 12/25/17 12/25/17 00:10 01:00 05:00 Temperature 36.7 C Heart Rate 74 Heart Rate [ 76 57 L Brachial] Respiratory 20 18 Rate Blood Pressure Blood Pressure 121/66 138/67 H [Right Brachial artery] O2 Saturation 97 12/25/17 12/25/17 12/25/17 07:19 08:00 13:36 Temperature 36.7 C 37.1 C Heart Rate 66 Heart Rate [ 61 35 L Brachial] Respiratory 24 19 20 Rate Blood Pressure Blood Pressure 127/62 137/64 H [Right Brachial artery] O2 Saturation 96 93 Oxygen O2 Source high flow nasal cannula I&O (Last 24 Hrs): Intake and Output Totals x24h 12/23/17 12/24/17 12/25/17 23:59 23:59 23:59 Intake Total 4530 3161.667 1180 Output Total 375 1610 975 Balance 4155 1551.667 205 General: Alert, Other (Appears very fatigued) HEENT: Mucous membr. moist/pink Neck: Supple, No JVD Neuro: Non Focal Cardiovascular: Regular rate, No murmurs Respiratory: Breath sounds nml, Other (Whering oximizer at high flow) Abdomen: Soft Extremities: No edema - Results Results: Laboratory Results WBC 9.4 x10^3/uL (4.8-10.8) 12/23/17 06:00 RBC 4.21 10^6/uL (4.70-6.10) L 12/23/17 06:00 Hgb 12.1 g/dL (14.0-18.0) L 12/23/17 06:00 Hct 37.3 % (42.0-52.0) L 12/23/17 06:00 MCV 88.6 fL (80.0-94.0) 12/23/17 06:00 MCH 28.8 pg (27.0-31.0) 12/23/17 06:00 MCHC 32.5 g/dL (32.0-36.0) 12/23/17 06:00 RDW 13.7 % (12.0-15.0) 12/23/17 06:00 Plt Count 164 10^3/uL (130-450) 12/23/17 06:00 MPV 8.4 fL (7.4-11.4) 12/23/17 06:00 Neut # 7.6 10^3/uL (1.5-6.6) H 12/23/17 06:00 Lymph # 1.2 10^3/uL (1.5-3.5) L 12/23/17 06:00 Ogle # 0.6 10^3/uL (0.0-1.0) 12/23/17 06:00 Eos # 0.0 10^3/uL (0.0-0.7) 12/23/17 06:00 Baso # 0.0 10^3/uL (0.0-0.1) 12/23/17 06:00 Absolute Nucleated RBC 0.00 x10^3/uL 12/23/17 06:00 Nucleated RBC % 0.0 /100WBC 12/23/17 06:00 Sodium 133 mmol/L (135-145) L 12/24/17 05:28 Potassium 3.7 mmol/L (3.5-5.0) 12/24/17 05:28 Chloride 100 mmol/L (101-111) L 12/24/17 05:28 Carbon Dioxide 28 mmol/L (21-32) 12/24/17 05:28 Anion Gap 5.0 (6-13) L 12/24/17 05:28 BUN 23 mg/dL (6-20) H 12/24/17 05:28 Creatinine 0.9 mg/dL (0.6-1.2) 12/24/17 05:28 Estimated GFR (MDRD) 81 (>89) L 12/24/17 05:28 Glucose 130 mg/dL (70-100) H 12/24/17 05:28 Lactic Acid 1.8 mmol/L (0.5-2.2) 12/22/17 18:21 Calcium 8.4 mg/dL (8.5-10.3) L 12/24/17 05:28 Magnesium 1.8 mg/dL (1.7-2.8) 12/24/17 17:29 Total Bilirubin 0.9 mg/dL (0.2-1.0) 12/22/17 18:21 AST 37 IU/L (10-42) 12/22/17 18:21 ALT 20 IU/L (10-60) 12/22/17 18:21 Alkaline Phosphatase 51 IU/L (42-121) 12/22/17 18:21 Troponin I 0.27 ng/mL (<0.49) 12/25/17 05:08 B-Natriuretic Peptide 408 pg/mL (5-100) H 12/25/17 05:08 Total Protein 8.1 g/dL (6.7-8.2) 12/22/17 18:21 Albumin 3.7 g/dL (3.2-5.5) 12/22/17 18:21 Globulin 4.4 g/dL (2.1-4.2) H 12/22/17 18:21 Albumin/Globulin Ratio 0.8 (1.0-2.2) L 12/22/17 18:21 Lipase 14 U/L (22-51) L 12/22/17 18:21 Free T4 1.24 ng/dL (0.58-1.64) 12/24/17 17:29 Influenza A (Rapid) Negative (Negative) 12/22/17 18:12 Influenza B (Rapid) POSITIVE (Negative) H 12/22/17 18:12 Influenza Types A,B Ag + H 12/22/17 18:12
[2017-12-26] MEDS: VANCOMYCIN INJ 1 GM in SODIUM CHLORIDE 0.9% 250 ML IV SCH (00:04)
[2017-12-26] MEDS: SODIUM CHLORIDE FLUSH 0.9% 10 ML SYRINGE IVP SCH ×3 (00:10→16:59)
[2017-12-26] MEDS: IPRATROPIUM/ALBUTEROL 3 ML NEB INH PRN ×3 (01:45→22:55)
[2017-12-26] MEDS: oxyCOD/ACETAMIN 5 MG/325 MG TABLET PO PRN (02:22)
[2017-12-26] MEDS: METOPROLOL SUCCINATE 50 MG TABLET PO SCH (05:45)
[2017-12-26] MEDS: LEVOTHYROXINE 75 MCG TABLET PO SCH (06:52)
[2017-12-26] MEDS: SACCHAROMYCES BOULARDII 250 MG CAPSULE PO SCH ×2 (08:21→16:59)
[2017-12-26] MEDS: guaiFENesin 600 MG TABLET PO SCH ×2 (08:22→20:43)
[2017-12-26] MEDS: POLYETHYLENE GLYCOL 3350 17 GM PACKET PO SCH (08:22)
[2017-12-26] MEDS: ASPIRIN EC 81 MG TABLET PO SCH (08:22)
[2017-12-26] MEDS: OSELTAMIVIR 30 MG CAPSULE PO SCH ×2 (08:22→20:44)
--- NOTE | 2017-12-26 11:08 | PROVIDER PROGRESS NOTE ---
Subjective - Prog Note Date Prog Note Date: 12/26/17 Prog Note Time: 11:00 - Subjective Pt reports feeling: Improved (Slightly improved SOB, less cough, still feels ill and needs O2.) Objective - Vital Signs/Intake & Output Vital Signs: Vital Signs x48h Temp Pulse Pulse Resp BP Pulse Ox 12/26/17 09:30 79 20 12/26/17 08:58 36.6 C 55 L 18 123/71 93 12/26/17 05:05 36.9 C 116 H 22 108/66 92 Intake & Output: Intake & Output 12/23/17 12/24/17 12/25/17 12/26/17 23:59 23:59 23:59 23:59 Intake Total 4530 3161.667 2730 690 Output Total 375 1610 1575 525 Balance 4155 4225.218 8308 165 - Objective General Appearance: positive: Mild distress, Other (increased work of breathing , even on oxygen) Neck: positive: Nml inspection Respiratory: positive: Wheezes, Rhonchi, Other (increased expratory/inspiratory ratio, increased work of breathing) Cardiovascular: positive: No murmur, Tachycardia Abdomen: positive: Non-tender, Nml bowel sounds Skin: positive: No rash, Pallor Extremities: positive: Joint swelling (left ankle swelling and tenderness) - Lab Results Fish Bones: 12/23/17 06:00 12/24/17 05:28 Assessment/Plan - Problem List (1) Respiratory failure with hypoxia Impression: Secondary to influenza and PNA with bronchospastic reactive airway. Will add steroid, IV and inhaled. Continue bronchodilators and supportive care. Oxygen per high flow [place]. Continue Tamiflu for influenza day#4, adjusted Abx, will use zosyn. Qualifiers: Chronicity: acute Qualified Code(s): J96.01 - Acute respiratory failure with hypoxia (2) Diarrhea Impression: Might be ABX induced, or flu related, or travel realted. Neg c. diff and cx. Qualifiers: Diarrhea type: unspecified type Qualified Code(s): R19.7 - Diarrhea, unspecified (3) Troponin level elevated Impression: No upgoing trend. Demand ischemia rather than ACS. (4) Left foot pain Impression: Ordered Left foot X ray. Appears as ankle sprain, will r/o fracture. Added uric acid, although no hx of gout. Use antiinflammatories. (5) ARF (acute renal failure) Impression: Resolved. Qualifiers: Acute renal failure type: unspecified Qualified Code(s): N17.9 - Acute kidney failure, unspecified (6) Community acquired pneumonia Qualifiers: Lung location: unspecified part of lung (8) Paroxysmal atrial fibrillation with RVR Impression: On ASA/metoprolol.
[2017-12-26] MEDS: PANTOPRAZOLE 40 MG TABLET PO SCH (11:51)
[2017-12-26] MEDS: methylPREDNISolone SUCCINATE 40 MG/ML VIAL IVP SCH ×3 (11:51→22:26)
[2017-12-26] MEDS: PIPERACILLIN/TAZOBACTAM 3.375 GM in SODIUM CHLORIDE 0.9% MINIBAG 100 ML IV SCH ×3 (11:51→22:34)
--- NOTE | 2017-12-26 13:44 | XRAY Report ---
LEFT FOOT: 12/26/2017 HISTORY: Pain. COMPARISONS: None. FINDINGS: Mild degenerative change, first MTP articulation. Minor degenerative changes of the interphalangeal joints of the toes. No fracture, malalignment, bone destruction, or other acute finding. There is a small plantar calcaneal spur. IMPRESSION: MINOR DEGENERATIVE CHANGES, LEFT FOOT, WITHOUT SUPERIMPOSED ACUTE FINDINGS. TD: 12/26/2017 12:06
[2017-12-26] MEDS: SODIUM CHLORIDE FLUSH 0.9% 10 ML SYRINGE IVP PRN ×2 (17:12→22:28)
[2017-12-26] MEDS: BUDESONIDE 0.5 MG/2 ML NEB INH SCH ×2 (22:55→22:57)
[2017-12-27] MEDS: SODIUM CHLORIDE FLUSH 0.9% 10 ML SYRINGE IVP SCH ×3 (01:01→16:31)
[2017-12-27] MEDS: methylPREDNISolone SUCCINATE 40 MG/ML VIAL IVP SCH ×3 (05:39→22:00)
[2017-12-27] MEDS: SODIUM CHLORIDE FLUSH 0.9% 10 ML SYRINGE IVP PRN ×3 (05:39→13:43)
[2017-12-27] MEDS: PIPERACILLIN/TAZOBACTAM 3.375 GM in SODIUM CHLORIDE 0.9% MINIBAG 100 ML IV SCH ×4 (05:45→22:02)
[2017-12-27] MEDS: PANTOPRAZOLE 40 MG TABLET PO SCH (05:48)
[2017-12-27] MEDS: LEVOTHYROXINE 75 MCG TABLET PO SCH (05:48)
[2017-12-27 06:27] LABS: CALCIUM 8.9 mg/dL (8.5-10.3); CREATININE 0.9 mg/dL (0.6-1.2)
[2017-12-27] MEDS: BUDESONIDE 0.5 MG/2 ML NEB INH SCH ×2 (07:09→18:09)
[2017-12-27] MEDS ORDERED: POTASSIUM CHLORIDE 20 MEQ TABLET PO ONE (08:00)
[2017-12-27] MEDS: METOPROLOL SUCCINATE 50 MG TABLET PO SCH (08:08)
[2017-12-27] MEDS: SACCHAROMYCES BOULARDII 250 MG CAPSULE PO SCH ×2 (08:08→16:31)
[2017-12-27] MEDS: ASPIRIN EC 81 MG TABLET PO SCH (08:08)
[2017-12-27] MEDS: OSELTAMIVIR 30 MG CAPSULE PO SCH ×2 (08:08→22:01)
[2017-12-27] MEDS: guaiFENesin 600 MG TABLET PO SCH ×2 (08:08→21:59)
[2017-12-27] MEDS: POLYETHYLENE GLYCOL 3350 17 GM PACKET PO SCH (08:09)
--- NOTE | 2017-12-27 12:36 | PROVIDER PROGRESS NOTE ---
Subjective - Prog Note Date Prog Note Date: 12/27/17 - Subjective Pt reports feeling: Improved (Feels less SOB. Rested overnight, feels betetr after good sleep.) Objective - Vital Signs/Intake & Output Vital Signs: Vital Signs x48h Temp Pulse Pulse Resp BP Pulse Ox 12/27/17 12:13 36.6 C 70 16 117/64 90 L 12/27/17 08:24 36.5 C 62 16 129/61 91 L 12/27/17 07:11 84 20 Intake & Output: Intake & Output 12/24/17 12/25/17 12/26/17 12/27/17 23:59 23:59 23:59 23:59 Intake Total 3161.667 2730 2040 640 Output Total 1610 1575 1600 1170 Balance 1460.407 7222 440 -530 - Objective General Appearance: positive: Other (Still requires high flow nasal canula/ at 50% FiO2.) Eyes Bilateral: positive: Normal inspection Respiratory: positive: Rhonchi, Other (Less wheezing than yesterday. Still with increased work of breathing but impoved from 12/26.) Cardiovascular: positive: Regular rate & rhythm Abdomen: positive: Non-tender Skin: positive: No rash - Lab Results Fish Bones: 12/23/17 06:00 12/27/17 06:18 Other Labs: Lab Results x24hrs 12/27/17 12/26/17 Range/Units 06:18 11:52 Sodium 135 (135-145) mmol/L Potassium 3.3 L (3.5-5.0) mmol/L Chloride 98 L (101-111) mmol/L Carbon Dioxide 26 (21-32) mmol/L Anion Gap 11.0 (6-13) BUN 24 H (6-20) mg/dL Creatinine 0.9 (0.6-1.2) mg/dL Estimated GFR (MDRD) 81 L (>89) Glucose 152 H (70-100) mg/dL Uric Acid 7.2 (2.6-7.2) mg/dL Calcium 8.9 (8.5-10.3) mg/dL Assessment/Plan - Problem List (1) Respiratory failure with hypoxia Impression: Respiratory failure with hypoxia Impression: Secondary to influenza and PNA with bronchospastic reactive airway. Improved on steroid, IV and inhaled. Continue bronchodilators and supportive care. Oxygen per high flow [place]. Finishing Tamiflu for influenza day#5. Completed 6 days on different IV ABX, 2 nd day on Zosyn. Will continue Zosyn for one more day to finish a 7 day course on ABX. Sputum grows Krys. Likely contaminant, but due to critical illness, co-morbidities and resp failure elected to treat with short course of PO Diflucan. Qualifiers: Chronicity: acute Qualified Code(s): J96.01 - Acute respiratory failure with hypoxia (2) Diarrhea Impression: Might be ABX induced, or flu related, or travel realted. Neg c. diff and cx. Qualifiers: Diarrhea type: unspecified type Qualified Code(s): R19.7 - Diarrhea, unspecified (3) Troponin level elevated Impression: No upgoing trend. Demand ischemia rather than ACS. (4) Left foot pain Impression: Ordered Left foot X ray. Appears as ankle sprain, will r/o fracture. Added uric acid, although no hx of gout. Use antiinflammatories. Uric acid upper normal. X ray showed no fracture. (5) ARF (acute renal failure) Impression: Resolved. Qualifiers: Acute renal failure type: unspecified Qualified Code(s): N17.9 - Acute kidney failure, unspecified (6) Community acquired pneumonia Qualifiers: Lung location: unspecified part of lung Qualifiers: Chronicity: acute Qualified Code(s): J96.01 - Acute respiratory failure with hypoxia (2) Diarrhea Qualifiers: Diarrhea type: unspecified type Qualified Code(s): R19.7 - Diarrhea, unspecified (5) ARF (acute renal failure) Qualifiers: Acute renal failure type: unspecified Qualified Code(s): N17.9 - Acute kidney failure, unspecified (6) Community acquired pneumonia Qualifiers: Lung location: unspecified part of lung
[2017-12-27] MEDS: FLUCONAZOLE 100 MG TABLET PO SCH (13:51)
[2017-12-27] MEDS: IPRATROPIUM/ALBUTEROL 3 ML NEB INH PRN (18:09)
[2017-12-28] MEDS: oxyCOD/ACETAMIN 5 MG/325 MG TABLET PO PRN ×2 (01:34→22:53)
[2017-12-28] MEDS: PIPERACILLIN/TAZOBACTAM 3.375 GM in SODIUM CHLORIDE 0.9% MINIBAG 100 ML IV SCH (06:30)
[2017-12-28] MEDS: methylPREDNISolone SUCCINATE 40 MG/ML VIAL IVP SCH ×3 (06:30→22:20)
[2017-12-28] MEDS: SODIUM CHLORIDE FLUSH 0.9% 10 ML SYRINGE IVP SCH ×3 (06:30→21:20)
[2017-12-28] MEDS: PANTOPRAZOLE 40 MG TABLET PO SCH (06:31)
[2017-12-28] MEDS: LEVOTHYROXINE 75 MCG TABLET PO SCH (06:31)
--- NOTE | 2017-12-28 07:36 | XRAY Report ---
EXAM: CHEST RADIOGRAPHY EXAM DATE: 12/28/2017 07:02 AM. CLINICAL HISTORY: Resp fail. COMPARISON: Frontal chest 12/24/2017. TECHNIQUE: 1 view. FINDINGS: Lungs/Pleura: Bibasilar consolidations. No interval change. No pneumothorax. Likely small pleural eff usions. Mediastinum: Stable cardiomegaly. IMPRESSION: Bibasilar consolidations without significant change. Correlate clinically for pneumonia a nd/or CHF. Follow-up is recommended. [facility] Referring Provider Line: [phone] SITE ID: [id number]
[2017-12-28] MEDS: IPRATROPIUM/ALBUTEROL 3 ML NEB INH PRN ×2 (09:18→18:15)
[2017-12-28] MEDS: BUDESONIDE 0.5 MG/2 ML NEB INH SCH ×2 (09:19→18:15)
[2017-12-28] MEDS: SACCHAROMYCES BOULARDII 250 MG CAPSULE PO SCH ×2 (10:11→17:07)
[2017-12-28] MEDS: FLUCONAZOLE 100 MG TABLET PO SCH (10:11)
[2017-12-28] MEDS: OSELTAMIVIR 30 MG CAPSULE PO SCH (10:11)
[2017-12-28] MEDS: METOPROLOL SUCCINATE 50 MG TABLET PO SCH (10:11)
[2017-12-28] MEDS: ASPIRIN EC 81 MG TABLET PO SCH (10:11)
[2017-12-28] MEDS: guaiFENesin 600 MG TABLET PO SCH ×2 (10:12→21:21)
[2017-12-28] MEDS: POLYETHYLENE GLYCOL 3350 17 GM PACKET PO SCH (10:12)
--- NOTE | 2017-12-28 11:27 | PROVIDER PROGRESS NOTE ---
Subjective - Prog Note Date Prog Note Date: 12/28/17 - Subjective Pt reports feeling: Improved (He feels better, but still SOB. Confirms full code status. Does not agree to transfer to another facility for bronchoscopy or pulmonary consultation.) Objective - Vital Signs/Intake & Output Vital Signs: Vital Signs x48h Temp Pulse Pulse Resp BP Pulse Ox 12/28/17 10:15 64 12/28/17 09:44 62 20 12/28/17 07:25 36.4 C L 54 L 16 141/62 H 92 12/28/17 05:26 36.5 C 59 L 16 145/65 H 96 Intake & Output: Intake & Output 12/25/17 12/26/17 12/27/17 12/28/17 23:59 23:59 23:59 23:59 Intake Total 2730 2040 1970 660 Output Total 1575 1600 1520 400 Balance 1155 440 450 260 - Objective General Appearance: positive: Alert, Mild distress Eyes Bilateral: positive: Normal inspection Respiratory: positive: Rhonchi, Other (crakles at bases) Skin: positive: No rash Neurologic/Psychiatric: positive: Oriented x3 - Lab Results Fish Bones: 12/23/17 06:00 12/27/17 06:18 Assessment/Plan - Problem List (1) Respiratory failure with hypoxia Impression: Respiratory failure with hypoxia/Complex Pneumonia/ Influenza/COPD/bronchospasm Impression: Resp fail is multifactorial secondary to influenza and complex PNA with bronchospastic reactive airway. Improved on steroid, IV and inhaled. Continue bronchodilators and supportive care. Oxygen per high flow NC. Finished Tamiflu for influenza. Completed 7 days on different IV ABX, 3rd day on Zosyn. Sputum grows Krys. Likely contaminant, but due to critical illness, co-morbidities and resp failure elected to treat with short Diflucan. Still requires 60-70% FiO2 regardless of subjective improvement. Broadened ABX to Meropenem and continue Diflucan IV. MRSA was negative. Respiratory therapist repeatedly asking for ABG and BiPAP. Patient is alert oriented and hemodynamically stable , although he requires high FiO2, he does not have respiratory distress at rest and feels subjectively improving. In this clinical contexts he is not a candidate for intubation and we already know that he has severe hypoxemic respiratory failure. ABG wouyld confirm sever hypoxemia but would not change the management. Therefore it is not ordered. High flow NC is the preferred mode of treatment over BiPAP due to less aspiration risk and better patient comfort to tolerate it. As long as patient is stable and comfortable we will continue current form/mode of O2 delivery. Due to concern of the respiratory therapist I rediscussed code status with the patient and I offered him to transfer to higher level of care for pulmonology consultation considering ongoing respiratory failure. Benefit would be specialist consultation and possible bronchoscopy. Patient at this point does not wish to transfer. I feel he is getting maximum support with tx if influenza, IV and inhaled steroid, broad ABX and antifungal therapy. I don't see added benefit from over the phone conversation. Ordered CT of the chest with contrast plus high resolution. I expect that the multifactorial resp failure would take longer time to treat, but at this point there is no decline in the patient's condition. If he showed decline rather than improvement I would advocate strongly for transfer. Reviewed Chest X ray from this morning and from admit: There is hyper-aireated lung in the upper shah and fluffy opacities in the lower lobes/bases with confluent infiltrate in the left mid zone. Appears with a few streaky scarring- like lines. Suspect underlying COPD/Fibrosis and acute PNA. Today's image shows slight improvement compared to admit. Follow up CT will be reviewed. Qualifiers: Chronicity: acute Qualified Code(s): J96.01 - Acute respiratory failure with hypoxia (2) Troponin level elevated Impression: No upgoing trend. Demand ischemia rather than ACS. (3) Left foot pain Impression: Ordered Left foot X ray. Appears as ankle sprain. Uric acid upper normal. X ray showed no fracture. Swelling and pain decreased/ improving. (4) ARF (acute renal failure) Impression: Resolved. (5) Diarrhea Qualifiers: Diarrhea type: unspecified type Qualified Code(s): R19.7 - Diarrhea, unspecified (6) ARF (acute renal failure) Qualifiers: Acute renal failure type: unspecified Qualified Code(s): N17.9 - Acute kidney failure, unspecified RESOLVED. Qualifiers: Chronicity: acute Qualified Code(s): J96.01 - Acute respiratory failure with hypoxia
[2017-12-28 11:37] LABS: BASOPHILS # (AUTO) 0.1 10^3/uL (0.0-0.1); BASOPHILS % (AUTO) 0.5 %; HGB - HEMOGLOBIN 12.2 g/dL (14.0-18.0); LYMPHOCYTES # (AUTO) 0.3 10^3/uL (1.5-3.5); LYMPHOCYTES % (AUTO) 1.7 %; MEAN CORPUSCULAR HEMOGLOBIN 29.3 pg (27.0-31.0); MEAN CORPUSCULAR HGB CONC 33.4 g/dL (32.0-36.0); MEAN CORPUSCULAR VOLUME 87.7 fL (80.0-94.0); MEAN PLATELET VOLUME 8.3 fL (7.4-11.4); MONOCYTES # (AUTO) 0.5 10^3/uL (0.0-1.0); MONOCYTES % (AUTO) 2.8 %; NEUTROPHILS # (AUTO) 15.6 10^3/uL (1.5-6.6); PLT - PLATELET COUNT 382 10^3/uL (130-450); RED BLOOD COUNT 4.17 10^6/uL (4.70-6.10); RED CELL DISTRIBUTION WIDTH 13.6 % (12.0-15.0); WHITE BLOOD COUNT 16.4 x10^3/uL (4.8-10.8)
[2017-12-28] MEDS ORDERED: IOPAMIDOL-300 100 ML VIAL ONE (11:40)
[2017-12-28] MEDS ORDERED: IOPAMIDOL-300 100 ML VIAL IVP ONE (12:23)
--- NOTE | 2017-12-28 12:55 | CT Report ---
EXAM: CT CHEST HIGH-RESOLUTION WITHOUT CONTRAST EXAM DATE: 12/28/2017 12:23 PM. CLINICAL HISTORY: Hypoxia. Evaluate opacities seen on chest radiograph COMPARISON: Chest radiographs from 12/22/2017 and 12/28/2017. TECHNIQUE: High-resolution CT was performed utilizing thin section imaging in supine and prone positi on. Multiaxial helical CT imaging was performed through the chest. IV contrast: None. Reconstructions : Coronal and sagittal. FINDINGS: There is severe centrilobular emphysema. This mostly affects the upper lobes. Focal bibasilar dense consolidations are seen as well as surrounding patchy groundglass attenuation. This appearance is concerning for pneumonia including aspiration. There may be some mild basilar bronchiectasis. No subpleural honeycombing to suggest significant fibrosis. No peribronchovascular thickening. No centrilobular opacities. Overall evaluation for interstitial pneumonitis is difficult because of apparent superimposed consoli dations. Small bilateral pleural effusions noted. Within the preserved parenchyma anteriorly at the mid to lower lung levels, there is no septal edema or groundglass attenuation to suggest CHF. IMPRESSION: Most suggestive of bibasilar pneumonia superimposed on some nonspecific chronic interstitial changes as well as pulmonary emphysema. No evidence for lena CHF. Consider additional CT follow-up after resolution of current consolidations to better evaluate for in terstitial pneumonitis as is clinically warranted. [facility] Referring Provider Line: [phone] SITE ID: [id number]
[2017-12-28] MEDS: MEROPENEM 500 MG in SODIUM CHLORIDE 0.9% MINIBAG 100 ML IV SCH ×2 (13:25→21:20)
[2017-12-28] MEDS: ENOXAPARIN 40 MG/0.4 ML SYRINGE SUBQ SCH (14:26)
[2017-12-29] MEDS: SODIUM CHLORIDE FLUSH 0.9% 10 ML SYRINGE IVP SCH ×3 (05:55→16:30)
[2017-12-29] MEDS: methylPREDNISolone SUCCINATE 40 MG/ML VIAL IVP SCH ×3 (05:58→22:34)
[2017-12-29] MEDS: SODIUM CHLORIDE FLUSH 0.9% 10 ML SYRINGE IVP PRN ×2 (06:04→22:35)
[2017-12-29] MEDS: MEROPENEM 500 MG in SODIUM CHLORIDE 0.9% MINIBAG 100 ML IV SCH ×3 (06:40→21:57)
[2017-12-29] MEDS: LEVOTHYROXINE 75 MCG TABLET PO SCH (06:43)
[2017-12-29] MEDS: PANTOPRAZOLE 40 MG TABLET PO SCH (06:43)
[2017-12-29] MEDS: ASPIRIN EC 81 MG TABLET PO SCH (08:48)
[2017-12-29] MEDS: METOPROLOL SUCCINATE 50 MG TABLET PO SCH (08:48)
[2017-12-29] MEDS: guaiFENesin 600 MG TABLET PO SCH ×2 (08:48→21:57)
[2017-12-29] MEDS: SACCHAROMYCES BOULARDII 250 MG CAPSULE PO SCH ×2 (08:49→16:30)
[2017-12-29] MEDS: ENOXAPARIN 40 MG/0.4 ML SYRINGE SUBQ SCH (08:49)
[2017-12-29] MEDS: FLUCONAZOLE 200 MG/100 ML 100 ML IV SCH (08:49)
[2017-12-29] MEDS: IPRATROPIUM/ALBUTEROL 3 ML NEB INH PRN ×2 (09:00→20:51)
[2017-12-29] MEDS: BUDESONIDE 0.5 MG/2 ML NEB INH SCH ×2 (09:00→20:51)
[2017-12-29] MEDS: POLYETHYLENE GLYCOL 3350 17 GM PACKET PO SCH (11:38)
--- NOTE | 2017-12-29 13:53 | PROVIDER PROGRESS NOTE ---
Subjective - Prog Note Date Prog Note Date: 12/29/17 - Subjective Pt reports feeling: Improved (Up in chair for most of the day. Tolerated chair PT. Does not feel SOB, and tolerated titartion of oxygen. Uses high flow intermittently, can be on face mask at 7-8L. Feels progressing, eats well and imporoves gradually with breathing.) Objective - Vital Signs/Intake & Output Vital Signs: Vital Signs x48h Temp Pulse Pulse Resp BP Pulse Ox 12/29/17 12:51 56 L 175/67 H 92 12/29/17 11:23 36.5 C 55 L 24 167/71 H 91 L 12/29/17 09:00 63 20 12/29/17 07:46 36.3 C L 50 L 20 153/67 H 92 Intake & Output: Intake & Output 12/26/17 12/27/17 12/28/17 12/29/17 23:59 23:59 23:59 23:59 Intake Total 2040 1970 1060 800 Output Total 1600 1520 540 575 Balance 440 450 520 225 - Objective General Appearance: positive: No acute distress ENT: positive: No signs of dehydration Neck: positive: Nml inspection Respiratory: positive: Other (Improved air entry, much less bi-basilar crackeling, no wheezes.) Cardiovascular: positive: Regular rate & rhythm Abdomen: positive: Non-tender Neurologic/Psychiatric: positive: Oriented x3, Mood/affect nml - Lab Results Fish Bones: 12/28/17 11:28 12/27/17 06:18 Assessment/Plan - Problem List (1) Respiratory failure with hypoxia Impression: Respiratory failure with hypoxia/Complex Pneumonia/ Influenza/COPD/bronchospasm Impression: Resp fail is multifactorial secondary to influenza and complex PNA with bronchospastic reactive airway. Improved on steroid, IV and inhaled. Continue bronchodilators and supportive care. Oxygen per high flow NC alternating with face mask. Finished Tamiflu for influenza. Completed 8 days on different IV ABX, Currently on Meropenem day #2. Sputum grows Krys. On IV Diflucan. Due to recent travel to [place] pulmonary hisptoplasmosis is considered; without bronchoscopy and direct culture the diagnosis is difficult to establish. MRSA was negative. CT chest was reviewed. Over all, started to show improvement with decreased oxygen requirement. Able to increase activity and has good oral intake. Plan: continue Meropenem and Fluconazole IV; continue IV steroid today. Continue current care. Qualifiers: Chronicity: acute Qualified Code(s): J96.01 - Acute respiratory failure with hypoxia (2) Troponin level elevated Impression: No upgoing trend. Demand ischemia rather than ACS. (3) Left foot pain Impression: Ordered Left foot X ray. Appears as ankle sprain. Uric acid upper normal. X ray showed no fracture. Swelling and pain decreased/ improving. (4) Afib. Stable on Metoprolol. (5) Diarrhea Qualifiers: Diarrhea type: unspecified type Qualified Code(s): R19.7 - Diarrhea, unspecified (6) ARF (acute renal failure) Qualifiers: Acute renal failure type: unspecified Qualified Code(s): N17.9 - Acute kidney failure, unspecified RESOLVED. Qualifiers: Chronicity: acute Qualified Code(s): J96.01 - Acute respiratory failure with hypoxia
[2017-12-29] MEDS: oxyCOD/ACETAMIN 5 MG/325 MG TABLET PO PRN (23:07)
[2017-12-30] MEDS: SODIUM CHLORIDE FLUSH 0.9% 10 ML SYRINGE IVP SCH ×2 (01:51→14:19)
[2017-12-30] MEDS: IPRATROPIUM/ALBUTEROL 3 ML NEB INH PRN (06:00)
[2017-12-30] MEDS: BUDESONIDE 0.5 MG/2 ML NEB INH SCH (06:00)
[2017-12-30] MEDS: MEROPENEM 500 MG in SODIUM CHLORIDE 0.9% MINIBAG 100 ML IV SCH ×2 (06:39→14:18)
[2017-12-30] MEDS: SODIUM CHLORIDE FLUSH 0.9% 10 ML SYRINGE IVP PRN (06:39)
[2017-12-30] MEDS: methylPREDNISolone SUCCINATE 40 MG/ML VIAL IVP SCH (06:39)
[2017-12-30] MEDS: PANTOPRAZOLE 40 MG TABLET PO SCH (06:40)
[2017-12-30] MEDS: LEVOTHYROXINE 75 MCG TABLET PO SCH (06:40)
[2017-12-30] MEDS: SACCHAROMYCES BOULARDII 250 MG CAPSULE PO SCH (08:17)
[2017-12-30] MEDS: FLUCONAZOLE 200 MG/100 ML 100 ML IV SCH (08:17)
[2017-12-30] MEDS: ASPIRIN EC 81 MG TABLET PO SCH (08:17)
[2017-12-30] MEDS: guaiFENesin 600 MG TABLET PO SCH (08:17)
[2017-12-30] MEDS: METOPROLOL SUCCINATE 50 MG TABLET PO SCH (08:17)
[2017-12-30] MEDS: ENOXAPARIN 40 MG/0.4 ML SYRINGE SUBQ SCH (08:55)
[2017-12-30] MEDS ORDERED: LOSARTAN 50 MG TABLET PO SCH (09:00)
[2017-12-30] MEDS ORDERED: predniSONE 20 MG TABLET PO SCH (09:00)
[2017-12-30] MEDS: POLYETHYLENE GLYCOL 3350 17 GM PACKET PO SCH (14:12)
--- NOTE | 2017-12-30 14:19 | Discharge Plan ---
Discharge Plan Disposition: 02 Transfer Acute Care Hosp No Smoking: If you smoke, Please STOP! Call for help. Follow-up with: Lawrence Cody MD [Primary Care Provider] -
[2017-12-30 16:04] VITALS: BP 180/76
--- NOTE | 2018-01-01 12:33 | DISCHARGE SUMMARY ---
Physician: Sondra Santos MD DATE OF ADMISSION: 12/22/2017 DATE OF DISCHARGE: 12/30/2017 Please note: The patient is getting transferred for higher level of care to [facility] for pulmonology consultation. CHIEF COMPLAINT: Shortness of breath. DISCHARGE DIAGNOSES 1. Hypoxic respiratory failure, multifactorial. a. Complex pneumonia. b. Influenza B. c. Chronic obstructive pulmonary disease/bronchospasm. d. Possible fungal pneumonia, considering recent travel to [place]; pulmonary histoplasmosis should be considered. 2. Acute renal failure on admission in the setting of sepsis, resolved. 3. Sepsis/systemic inflammatory response secondary to pneumonia and acute illness, resolved. 4. Troponin leak without upgoing trend; no ischemic change on EKG. Echocardiogram showing left ventricular hypertrophy but normal systolic function, no valvular abnormality. Impression is that troponin leak was secondary to demand ischemia in the setting of sepsis, rather than acute coronary syndrome. 5. History of paroxysmal atrial fibrillation. During the hospitalization, the patient had an episode of atrial fibrillation with rapid ventricular rate in the setting of sepsis, which since then resolved, stable, rate controlled on metoprolol. 6. Diarrhea on admission, in the setting of influenza B and recent travel to [place]. Patient was ruled out for Clostridium difficile and other pathogens. Stool cultures remained negative, C difficile was negative. 7. Left ankle pain and swelling. This was evaluated by a left foot x-ray; there was no fracture and no abnormality. Uric acid was normal. It was most likely a muscle /ankle sprain as it resolved after 2 or 3 days. 8. Protein malnutrition. 9. Uncontrolled Hypertension. PAST MEDICAL HISTORY/SECONDARY DIAGNOSES: Hypertension, paroxysmal atrial fibrillation, thyroid dysfunction, dyslipidemia. MEDICATIONS PRIOR TO TRANSFER 1. Tylenol. 2. DuoNeb every 4 hours. 3. Budesonide/Pulmicort every 12 hours. 4. Lovenox 40 mg subcu daily. 5. Diflucan 200 mg IV daily. 6. Mucinex 600 mg p.o. twice daily. 7. Levothyroxine 150 mcg p.o. daily. 8. Cozaar 50 mg p.o. daily. 9. Meropenem 500 mg IV every 8 hours. 10. Metoprolol XL 100 mg p.o. daily. 11. Percocet 5/325 one tablet p.o. every 6 hours p.r.n. for pain. 12. Protonix 40 mg p.o. daily. 13. MiraLax p.r.n. 14. Solu-Medrol 600 mg IV every 8 hours. 15. Florastor 250 mg p.o. twice daily with meals. HOME MEDICATIONS PRIOR TO ADMISSION Included: 1. Aspirin. 2. Vitamin C. 3. Multivitamins. 4. Levothyroxine. 5. Percocet. 6. Metoprolol. 7. Omeprazole. 8. Meloxicam. 9. Losartan/hydrochlorothiazide. 10. Felodipine. 11. Simvastatin. DISCHARGE CONDITION VITAL SIGNS: Temperature 36.4 Celsius, heart rate between 60 and 64, respiratory rate between 18 and 24, currently on OxyMask at 13 liters 91%, blood pressure 180/70. GENERAL: The patient is a well-developed elderly male. He is alert, oriented, neurologically nonfocal verbalized understanding of discharge plan, and agreed to discharge to the [facility] [place]. CARDIOVASCULAR: S1, S2, regular. No obvious murmur. RESPIRATORY: Not much wheezing any longer; prior day, the patient had upper zone wheezes with increased expiratory and inspiratory ratio, which much improved during the past few days. In the lower lung zones, there are still dry crackles bilaterally above the bases but also quite improved during the past couple of days. No increased work of breathing, no cyanosis, although requires high oxygen but looks comfortable. LYMPHATIC: No lymphedema. BRIEF PRESENTATION AND HOSPITAL COURSE: The patient is an 82-year-old white male with the above listed medical problems who was admitted to the [facility] on 2017. This patient's recent history is significant for traveling to [place] with his . After they returned, the got hospitalized with acute hypoxic respiratory failure and was treated in our hospital, was hospitalized for about a week. Patient visited the while she was in the hospital several times. Subsequently, the was discharged as she improved on community-acquired pneumonia treatment, and a few days later, the patient presented with hypoxic respiratory failure with oxygen saturation in the 70s. Patient does not have history of chronic respiratory failure, and he has never been oxygen-dependent in the past. Based on his hospital workup, I suspect that he had underlying COPD; however, he has never been diagnosed or treated for it. On 12/22/2017, the patient was admitted acutely ill. He was found with acute renal failure. Besides the respiratory failure, he also had some troponin leak and showed septic physiology. Initially, he was on community-acquired pneumonia treatment; however, did not show any improvement as far as clinical response. He had negative MRSA screen, negative blood cultures; however, influenza screen was positive for influenza B. His sputum culture subsequently grew Krys 3+ on the top of normal respiratory rashid. Besides community-acquired pneumonia coverage, he was treated for influenza with Tamiflu; he received 30 mg twice daily for 5 days, note the dose adjustment secondary to renal failure. In the setting of sepsis, he also had an episode of atrial fibrillation with rapid ventricular rate. However, after metoprolol was restarted, his heart rate became controlled and has been controlled ever since. No further events were recorded on telemetry. Initially , as the patient remained with high oxygen requirement, he was diuresed, thinking that atrial fibrillation and rapid ventricular rate could precipitate pulmonary congestion. He did not respond to diuresis, and there was no improvement in his respiratory status. During the initial 4 or 5 days of his hospital stay, he continued showing borderline septic physiology as his blood pressure remained normal without the use of his regular antihypertensives. On 12/29/2017, his blood pressure started to elevate, and actually on 12/30/2017 on discharge day, his blood pressure is getting higher, in the 180 range. His losartan was restarted, given that his renal function had been normal during the past several days. As mentioned, the patient was treated for influenza and received community- acquired pneumonia coverage. In addition, he was diuresed. He did not improve; therefore, the antibiotics were switched to vancomycin and Zosyn on the third hospital day. At that time, given his bronchospastic response and wheezes, he was also started on IV steroids. From admission, he was on bronchodilators. Subsequently on the sixth hospital day, he was started on Diflucan for fungal coverage, and his antibiotics were switched to meropenem. Please note that in our hospital, micafungin is not available. Legionella test was sent, but we did not have laboratory tests to send for histoplasmosis. In the [facility], bronchoscopy or pulmonary consultation was not available. Regarding the patient's overall condition and activity level, he was not able to get out of bed much during the first 5 days of his hospital stay. Subsequently, he was able to sit in a chair and started to do chair physical therapy. I would like to note that getting out of bed, doing incentive spirometry and chair physical therapy, overall condition seemed to improve. Actually I must say that oxygenation improved as well, such that the patient was on high flow nasal cannula at 70% FiO2, and he could be titrated down to 50% FiO2. In the past 48 hours, he had been alternating high-flow nasal cannula 50% FiO2, and a facemask/OxyMask anywhere between 8 and 15 liters. Patient overall showed clinical improvement; however, respiratory therapist and staff at [facility] felt that this patient did not make enough improvement to stay at a critical access hospital, and they advised to have pulmonary consultation. Subsequently, the patient and his family requested the same. His case was discussed with the covering textile knitter, Dr. Licea, from [facility], and he kindly accepted this patient to transfer for pulmonary consultation and higher level of care. Regarding hospital workup, patient underwent CT scan of the chest ,which was with and without contrast, high resolution image, which showed hyperaeration in the upper lung shah, bibasilar pneumonia superimposed on some nonspecific chronic interstitial changes, as well as pulmonary emphysema. There was no evidence of congestive heart failure. Echocardiogram on 12/22/2017 showed normal size left ventricle with ejection fraction of 55% to 60% and grade 1 diastolic dysfunction, normal size right ventricle, and normal. right ventricular function. No hemodynamically significant valvular disease. CODE STATUS: PATIENT IS FULL CODE. Code status was re-discussed during this hospital stay, and HE STATED THAT HE WOULD LIKE TO REMAIN FULL CODE. TIME: Time spent with the transfer of this patient was 1 hour, which included coordination of his care with Pulmonology initiating the transfer. More than 50% of time was spent with coordination of the care. cc: MD Lester Price MD TD: 12/31/2017 02:52 MTDNilson
== END 2017-12-30 16:35 | disposition short-term general hospital (02) | DRG 193 ==
LOC: ED 17:29 → MS2 18:25
PROVIDERS: ADMIT Internal Medicine; ATTEND Internal Medicine
DX: J11.00 Influenza due to unidentified influenza virus with unspecified type of pneumonia (principal); R09.02 Hypoxemia; J96.01 Acute respiratory failure with hypoxia; B37.1 Pulmonary candidiasis; A41.89 Other specified sepsis; N17.9 Acute kidney failure, unspecified; E87.1 Hypo-osmolality and hyponatremia; B39.2 Pulmonary histoplasmosis capsulati, unspecified; J43.9 Emphysema, unspecified; I48.0 Paroxysmal atrial fibrillation; R19.7 Diarrhea, unspecified; E89.0 Postprocedural hypothyroidism; S93.402A Sprain of unspecified ligament of left ankle, initial encounter; X58.XXXA Exposure to other specified factors, initial encounter; R79.89 Other specified abnormal findings of blood chemistry; G47.8 Other sleep disorders; T50.995A Adverse effect of other drugs, medicaments and biological substances, initial encounter; Z87.891 Personal history of nicotine dependence; Y92.230 Patient room in hospital as the place of occurrence of the external cause
CPT/HCPCS: 36415; 71045; 71270; 80048; 80053; 83605; 83690; 83735; 83880; 84439; 84484; 84550; 85025; 87040; 87045; 87046; 87070; 87205; 87275; 87276; 87449; 87640; 93005; 93306; 94640; 94645; 94667; 99283; 99284; 99285

== ENCOUNTER 2018-06-25 10:32 | Outpatient (CLI) | payer MEDICARE, OTHER | END 2018-06-25 10:33 | disposition home or self-care (01) | LOC: SC 10:32 | PROVIDERS: ATTEND Internal Medicine Pulmonary Disease | DX: R09.02 Hypoxemia (principal); J44.9 Chronic obstructive pulmonary disease, unspecified; Z87.891 Personal history of nicotine dependence | CPT/HCPCS: 99203; G0463; 99212 ==

== ENCOUNTER → 2018-07-05 | Outpatient (CLI) | payer MEDICARE, OTHER | LOC: SC 19:30 | PROVIDERS: ATTEND Internal Medicine Pulmonary Disease | DX: R09.02 Hypoxemia (principal); R00.1 Bradycardia, unspecified | CPT/HCPCS: G0399 ×2; 95806 ==

== ENCOUNTER 2018-08-08 14:21 | Outpatient (CLI) | payer MEDICARE, OTHER | END 2018-08-08 14:22 | disposition home or self-care (01) | LOC: SC 14:21 | PROVIDERS: ATTEND Nurse Practitioner Family | DX: R09.02 Hypoxemia (principal); R00.1 Bradycardia, unspecified; I48.91 Unspecified atrial fibrillation | CPT/HCPCS: 99214; G0463; 99212 ==

== ENCOUNTER 2018-10-01 08:00 | Outpatient (CLI) | payer MEDICARE, OTHER ==
[2018-10-01 19:44] LABS: CALCIUM 9.7 mg/dL (8.5-10.3); CREATININE 1.3 mg/dL (0.6-1.2)
== END 2018-10-01 23:59 | disposition home or self-care (01) ==
LOC: LAB.WCP 08:00
PROVIDERS: ATTEND Internal Medicine Interventional Cardiology
DX: I71.4 Abdominal aortic aneurysm, without rupture (principal); I10 Essential (primary) hypertension; I70.0 Atherosclerosis of aorta
CPT/HCPCS: 36415; 80048

== ENCOUNTER 2018-12-10 13:58 | Outpatient (CLI) | payer MEDICARE, OTHER | END 2018-12-10 13:59 | disposition home or self-care (01) | LOC: LAB 13:58 | PROVIDERS: ATTEND Family Medicine | DX: E03.9 Hypothyroidism, unspecified (principal) | CPT/HCPCS: 36415; 84443 ==

== ENCOUNTER 2019-07-12 17:01 | Outpatient (CLI) | payer MEDICARE, OTHER ==
--- NOTE | 2019-07-14 17:31 | XRAY Report ---
Reason: DYSPNEA, COUGH, LUNG CRACKLES Procedure Date: 07/12/2019 Accession Number: [id number] / [id number] Procedure: XR - Chest 2 View X-Ray CPT Code: 97116 FULL RESULT: EXAM: CHEST RADIOGRAPHY EXAM DATE: 07/12/2019 05:24 PM. CLINICAL HISTORY: DYSPNEA, COUGH, LUNG CRACKLES. COMPARISON: CHEST 2 VIEW PA/LAT 03/06/2018 2:58 PM. TECHNIQUE: 2 views. FINDINGS: Lungs/Pleura: Lower lung predominant bilateral pulmonary reticulation could reflect sequelae of chronic interstitial pulmonary disease. New irregular opacity seen at the right upper lobe measuring approximately 2 cm. Increased consolidation of the bilateral lower lobes. Stable calcified granuloma at the left apex. No pleural effusions or pneumothorax. Mediastinum: Stable heart size and mediastinum. Tortuous thoracic aorta with atheromatous calcification. Other: None. IMPRESSION: 1. Lower lung predominant reticulation could reflect chronic interstitial pulmonary disease. 2. New irregular opacity seen at the right apex of unclear etiology. Chest CT should be considered for further evaluation of this finding. 3. Increase lower lung predominant consolidation could reflect superimposed basilar pneumonia. RADIA
== END 2019-07-12 17:02 | disposition home or self-care (01) ==
LOC: DI 17:01
PROVIDERS: ATTEND Physician Assistant Medical
DX: J18.1 Lobar pneumonia, unspecified organism (principal); R91.8 Other nonspecific abnormal finding of lung field
CPT/HCPCS: 71046

== ENCOUNTER 2020-01-07 08:58 | Outpatient (CLI) | payer MEDICARE, OTHER | END 2020-01-07 08:59 | disposition short-term general hospital (02) | LOC: EMS 08:58 | PROVIDERS: ATTEND Surgery | DX: R06.02 Shortness of breath (principal); R05 Cough; W19.XXXA Unspecified fall, initial encounter; Y92.002 Bathroom of unspecified non-institutional (private) residence as the place of occurrence of the external cause | CPT/HCPCS: A0425; A0429; A0888 ==

== ENCOUNTER 2020-02-04 08:47 | Outpatient (CLI) | payer MEDICARE, OTHER | END 2020-02-04 08:48 | disposition critical access hospital (66) | LOC: EMS 08:47 | PROVIDERS: ATTEND Surgery | DX: R55 Syncope and collapse (principal); R06.89 Other abnormalities of breathing | CPT/HCPCS: A0425; A0427 ==

== ENCOUNTER 2020-02-04 09:00 | Inpatient (IN) | payer MEDICARE, OTHER ==
[2020-02-04 10:23] LABS: ABG BASE EXCESS -2.6 mmol/L (-2.0-3.0); ABG HCO3 24.1 mmol/L (22.0-26.0); ABG PCO2 49 mmHg (34-45); ABG PH 7.31 (7.35-7.45); ABG TCO2 25.6 MMOL/L (21.0-29.0); ALLEN TEST POSITIVE
--- NOTE | 2020-02-04 10:23 | XRAY Report ---
Reason: Chest Pain Procedure Date: 02/04/2020 Accession Number: [id number] / [id number] Procedure: XR - Chest 1 View X-Ray CPT Code: 36944 Final Report FULL RESULT: EXAM: CHEST RADIOGRAPHY EXAM DATE: 02/04/2020 10:04 AM. CLINICAL HISTORY: Chest Pain. COMPARISON: CHEST 2 VIEW 07/12/2019 5:16 PM. TECHNIQUE: 1 view. FINDINGS: Lungs/Pleura: There has been interval increase in patchy and interstitial opacities seen in the mid and lower lungs, in part due to chronic lung disease and fibrosis. New airspace opacification is most prominent in the right midlung region. The upper lungs remain clear. There is no effusion or pneumothorax. Mediastinum: Within exam limitations, the cardiomediastinal contour is normal. Other: None. IMPRESSION: Worsening moderate bilateral airspace disease superimposed over moderate pulmonary fibrosis and scarring. Findings are concerning for developing pneumonia or aspiration particularly in the right midlung region. RADIA
[2020-02-04 10:25] LABS: ABG OXYGEN SATURATION 82 % (94-98); ABG PO2 53 mmHg (80-100)
[2020-02-04 10:27] LABS: BASOPHILS % (AUTO) 0.3 %; HGB - HEMOGLOBIN 13.8 g/dL (14.0-18.0); LYMPHOCYTES # (AUTO) 0.4 10^3/uL (1.5-3.5); LYMPHOCYTES % (AUTO) 3.9 %; MEAN CORPUSCULAR HEMOGLOBIN 29.2 pg (27.0-31.0); MEAN CORPUSCULAR HGB CONC 29.5 g/dL (32.0-36.0); MEAN CORPUSCULAR VOLUME 99.2 fL (80.0-94.0); MONOCYTES # (AUTO) 0.9 10^3/uL (0.0-1.0); MONOCYTES % (AUTO) 7.8 %; NEUTROPHILS # (AUTO) 9.6 10^3/uL (1.5-6.6); NEUTROPHILS % (AUTO) 87.2 %; PLT - PLATELET COUNT 220 10^3/uL (130-450); RED BLOOD COUNT 4.72 10^6/uL (4.70-6.10); RED CELL DISTRIBUTION WIDTH 15.6 % (12.0-15.0)
[2020-02-04 10:45] LABS: ALBUMIN 3.2 g/dL (3.2-5.5); ALBUMIN/GLOBULIN RATIO 0.8 (1.0-2.2); BILIRUBIN,TOTAL 0.8 mg/dL (0.2-1.0); CALCIUM 8.5 mg/dL (8.5-10.3); CREATININE 2.2 mg/dL (0.6-1.2)
--- NOTE | 2020-02-04 10:46 | ED Physician Documentation ---
PD HPI DYSPNEA - Stated complaint Stated Complaint: HYPOXIA - Chief complaint Chief Complaint: Resp - History obtained from History obtained from: Patient, EMS - History of Present Illness Timing - onset: Today Timing - onset during: Rest Timing - duration: Minutes Timing - details: Abrupt onset, Now resolved Inciting event(s): URI Improved by: O2 Worsened by: Exertion Associated symptoms: Cough. No: Fever Similar symptoms before: Diagnosis (COPD) Recently seen: Admitted (To [facility] last month with acute kidney injury, CHF, emphysema and NSTEMI. He was discharged on oxygen.) - Additional information Additional information: 85 y/o male with a history of COPD and pulmonary fibrosis is oxygen dependant at home and this morning he was found by his unconscious next to the bed. He slumped and did not fall. He was found with oxygen sats in the low 70's and unresponsive. Oxygen provided by mask resolved the patients decreased LOC. He is now alert and cooperative feels the oxygen must have been "pinched off" He does acknowledge worsening dyspnea this past week. He has had a recent admission to [facility] in December with SHIRA, hypoxia with CHF and he improved with diuresis and oxygen and was sent home on oxygen. The patient relates to me that prior to going to [place] last month he had been off of his oxygen for 1 year. He felt that he might try to go off of his oxygen again now that he was at home was feeling better. Today he was getting ready to go to the bathroom this morning when this incident occurred and he did did not have his oxygen started yet. He was diuresed 14 lbs in the hospital, had a right heart cath and a pulmonary angiogram and in the end it appears the diuresis is what helped. He has gained some of his weight back and has stopped using the oxygen 17/04. Review of Systems Constitutional: denies: Fever, Chills, Myalgias, Fatigue Eyes: denies: Decreased vision Ears: denies: Ear pain Nose: denies: Rhinorrhea / runny nose, Congestion Throat: denies: Sore throat Cardiac: denies: Chest pain / pressure, Palpitations Respiratory: reports: Dyspnea. denies: Cough GI: denies: Abdominal Pain, Nausea, Vomiting, Constipation, Diarrhea : denies: Dysuria, Frequency Skin: denies: Rash Musculoskeletal: denies: Neck pain, Back pain, Extremity pain Neurologic: denies: Generalized weakness, Focal weakness, Numbness PD PAST MEDICAL HISTORY - Past Medical History Past Medical History: Yes Cardiovascular: Hypertension, High cholesterol Respiratory: None Endocrine/Autoimmune: Other GI: GERD : None HEENT: None Psych: None Musculoskeletal: Osteoarthritis Derm: None - Past Surgical History Past Surgical History: Yes Ortho: Knee replacement HEENT: Other - Allergies Allergies/Adverse Reactions: Allergies Allergy/AdvReac Type Severity Reaction Status Date / Time morphine Allergy Hallucinati Verified 02/04/20 09:17 ons - Social History Does the pt smoke?: No Smoking Status: Former smoker Does the pt drink ETOH?: No Does the pt have substance abuse?: No - Immunizations Immunizations are current?: Yes PD ED PE NORMAL - Vitals Vital signs reviewed: Yes (tachypneic, hypertensive and hypoxic) - General General: Alert and oriented X 3, Well developed/nourished, Other (on a non- rebreather mask. ) - HEENT HEENT: Atraumatic, PERRL, EOMI - Neck Neck: Supple, no meningeal sign, No bony TTP - Cardiac Cardiac: RRR, No murmur - Respiratory Respiratory: Other (tachyneic with coarse breath sounds throughout. ) - Abdomen Abdomen: Soft, Non tender - Back Back: No CVA TTP, No spinal TTP - Derm Derm: Normal color, Warm and dry, No rash - Extremities Extremities: No deformity, No edema, No calf tenderness / cord - Neuro Neuro: Alert and oriented X 3, waste minimization technician 2-12 intact, No motor deficit, No sensory deficit, Normal speech Eye Opening: Spontaneous Motor: Obeys Commands Verbal: Oriented GCS Score: 15 - Psych Psych: Normal mood, Normal affect Results - Vitals Vitals: Vital Signs - 24 hr 02/04/20 02/04/20 02/04/20 09:17 09:46 10:31 Temperature 36.1 C L Heart Rate 64 64 61 Respiratory 25 H 16 16 Rate Blood Pressure 138/66 H 107/55 L 111/79 O2 Saturation 88 L 89 L 89 L 02/04/20 02/04/20 02/04/20 11:04 11:09 11:38 Temperature Heart Rate 61 61 62 Respiratory 21 20 Rate Blood Pressure 139/62 H 133/71 H O2 Saturation 89 L 93 02/04/20 12:17 Temperature Heart Rate 67 Respiratory 22 Rate Blood Pressure 145/72 H O2 Saturation 89 L Oxygen O2 Source BIPAP Oxygen Flow Rate 12 - EKG (time done) 1020 Rate: Rate (enter#) (61) Rhythm: NSR Intervals: Prolonged LA, Wide QRS Ischemia: Q waves Compare to prior EKG: Changed from prior EKG (SPT 12-24-2017 the rhythm has converted to sinus and the rate is decreased. ) Computer interpretation: Agree with computer - Labs Labs: Microbiology 02/04/20 12:32 Gram Stain - Final Sputum Laboratory Tests 02/04/20 02/04/20 02/04/20 10:15 10:20 10:20 WBC 11.0 H RBC 4.72 Hgb 13.8 L Hct 46.8 MCV 99.2 H MCH 29.2 MCHC 29.5 L RDW 15.6 H Plt Count 220 MPV 10.0 Neut # (Auto) 9.6 H Lymph # (Auto) 0.4 L [place] # (Auto) 0.9 Eos # (Auto) 0.0 Baso # (Auto) 0.0 Absolute Nucleated RBC 0.00 Nucleated RBC % 0.0 Bld Gas Analysis Time 1015 Sample Site RIGHT BRACHIAL ABG pH 7.31 L ABG pCO2 49 H ABG pO2 53 L* ABG HCO3 24.1 ABG Total CO2 25.6 ABG O2 Saturation 82 L* ABG Base Excess -2.6 L Candelario Test POSITIVE O2 Delivery Device NON REBREATHER MASK O2 Liters/Min 15.00 FiO2 100.00 Sodium 140 Potassium 6.1 H* Chloride 104 Carbon Dioxide 26 Anion Gap 10.0 BUN 63 H Creatinine 2.2 H Estimated GFR (MDRD) 29 L Glucose 138 H Lactic Acid Calcium 8.5 Total Bilirubin 0.8 AST 182 H ALT 195 H Alkaline Phosphatase 69 Troponin I High Sens Total Protein 7.0 Albumin 3.2 Globulin 3.8 Albumin/Globulin Ratio 0.8 L Lipase 30 02/04/20 02/04/20 10:20 10:56 WBC RBC Hgb Hct MCV MCH MCHC RDW Plt Count MPV Neut # (Auto) Lymph # (Auto) [place] # (Auto) Eos # (Auto) Baso # (Auto) Absolute Nucleated RBC Nucleated RBC % Bld Gas Analysis Time Sample Site ABG pH ABG pCO2 ABG pO2 ABG HCO3 ABG Total CO2 ABG O2 Saturation ABG Base Excess Candelario Test O2 Delivery Device O2 Liters/Min FiO2 Sodium Potassium Chloride Carbon Dioxide Anion Gap BUN Creatinine Estimated GFR (MDRD) Glucose Lactic Acid 1.6 Calcium Total Bilirubin AST ALT Alkaline Phosphatase Troponin I High Sens 12.3 Total Protein Albumin Globulin Albumin/Globulin Ratio Lipase - Rads (name of study) chest Radiology: Prelim report reviewed (Impression: Worsening moderate bilateral airspace disease superimposed over moderate pulmonary fibrosis and scarring. Findings are concerning for developing pneumonia or aspiration particularly in the right midlung region.), EMP read indepedently, See rad report head Radiology: Prelim report reviewed (Impression: No acute fracture or intracranial hemorrhage.), EMP read indepedently, See rad report Procedures - IVC sono (time) 1320 Bedside IVC sono: IVC measures (cm) (2.19), IVC collapsed c insp (cm) (2.19), High CVP PD MEDICAL DECISION MAKING - ED course Complexity details: reviewed old records, reviewed results, re-evaluated patient, considered differential, d/w patient ED course: 85-year-old male with history of CHF COPD and pulmonary fibrosis arrives today again with acute kidney injury and hypoxia requiring initiation of BiPAP. After review of his admission to [facility] in [place] I did interrogate his inferior vena cava and again found it to be plethoric and at 2.19cm. He is given a dose of lasix IV, ceftriaxone and azithromycin and admission is sought. Departure - Departure Disposition: [facility] DC/Xfer Clinical Impression: Respiratory failure with hypoxia Qualifiers: Chronicity: acute on chronic Qualified Code(s): J96.21 - Acute and chronic respiratory failure with hypoxia ARF (acute renal failure) Qualifiers: Acute renal failure type: unspecified Qualified Code(s): N17.9 - Acute kidney failure, unspecified Congestive heart failure Qualifiers: Heart failure type: right-sided Heart failure chronicity: acute on chronic Qualified Code(s): I50.813 - Acute on chronic right heart failure
--- NOTE | 2020-02-04 12:55 | CT Report ---
Reason: fall blood thinner altered LOC Procedure Date: 02/04/2020 Accession Number: [id number] / [id number] Procedure: CT - HEAD WO CPT Code: Final Report FULL RESULT: EXAM: CT HEAD EXAM DATE: 02/04/2020 12:17 PM. CLINICAL HISTORY: Status post fall, on blood thinners, altered level of consciousness. COMPARISON: None. TECHNIQUE: Multiaxial CT images were obtained from the foramen magnum to the vertex. Reformats: Sagittal and coronal. IV contrast: None. In accordance with CT protocol optimization, one or more of the following dose reduction techniques were utilized for this exam: automated exposure control, adjustment of mA and/or KV based on patient size, or use of iterative reconstructive technique. FINDINGS: Parenchyma: No intraparenchymal hemorrhage. No evidence of mass, midline shift, or CT findings of infarction. Colunga-white differentiation is distinct. Extraaxial Spaces: Normal for age. No subdural or epidural collections identified. Ventricles: Normal in size and position. Sinuses and Orbits: No mucosal thickening or fluid levels evident. Scattered retention cysts partially visualized in the bilateral maxillary sinuses. Bones: No evidence of fracture or calvarial defect. Other: None. IMPRESSION: No acute fracture or intracranial hemorrhage. RADIA
[2020-02-04] MEDS ORDERED: FUROSEMIDE 40 MG/4 ML VIAL IVP STA (13:31)
[2020-02-04] MEDS ORDERED: INSULIN REGULAR HUMAN 300 UNIT/3 ML VIAL IVP SCH (13:36)
[2020-02-04] MEDS ORDERED: DEXTROSE 10% 250 ML IV SCH (13:37)
[2020-02-04] MEDS ORDERED: ACETAMINOPHEN 325 MG TABLET PO PRN (13:38)
--- NOTE | 2020-02-04 13:59 | HISTORY & PHYSICAL EXAMINATION ---
Chief Complaint - Chief Complaint Chief Complaint: I passed outg History of Present Illness - Admitted From Admitted From:: Home - History Obtained From Records Reviewed: Yes History obtained from: Patient, ER Physician, EMR Exam Limitations: Patient is on BiPAP. - History of Present Illness HPI Comment/Other: This is a 85-year-old male with a history of COPD and pulmonary fibrosis on 4 to 5 L of oxygen via nasal cannula, paroxysmal atrial fibrillation, hypothyroidism who presents today after passing out at home. The patient states he has been feeling well the past few days this morning he went to go walk to the bathroom when he suddenly passed out. He does not recall any palpitations, chest pain, dyspnea prior to the syncope. His had found him unconscious next to the bed and she reported that he had slumped over but did not fall. When EMS arrived, he was found to have oxygen saturations in the low 70s and unresponsive. His neurologic status improved as oxygen was administered via mask. The patient reports he was hospitalized last month at [facility] for 1 week. He states that he saw his motel maid via telemedicine last week and he had been doing well without any complaints. He reports being compliant with his medications but did not take them today. He does report a cough but no fever, chills. He reports no worsening lower extremity edema or orthopnea. He denies any chest pain and he states that he actually does not feel any dyspnea whatsoever. He did have a flu and pneumonia vaccine this year. He reports that he has been home since the hospitalization although he did leave his house twice. One time he did not get out of his vehicle and the other time he did meet someone that he was selling his vehicle to. He otherwise reports no sick contacts. He states he has been using his oxygen throughout the day and night. He quit smoking over 30 years ago. He told the emergency department physician that he did not use his oxygen when he was going to the bathroom this morning. Was hospitalized last month at [facility] for approximately a week. He is here for an STEMI with heparin and for congestive heart failure with IV Lasix. He had acute kidney injury at that time as well and this improved with IV diuresis. His creatinine was 1.0 on discharge. He had a right heart cath prior to discharge which showed he was nearly euvolemic. He had a CTA of the chest which that was negative for pulmonary embolism. He was discharged on Eliquis and amiodarone for his atrial fibrillation as well as oral Lasix and he was asked to continue his losartan. In the emergency department, he was found to be hypoxic despite a facemask. He was placed on BiPAP with FiO2 of 50% and his saturations remained in the high 80s. A blood gas was obtained while he was on the facemask. His pH 7.31 and PCO2 was 49 with a PO2 of 53 on 15 L a minute. Labs are significant for a white count of 11. His creatinine was elevated at 2.2 with a BUN of 63. Potassium is also elevated at 6.1. His EKG showed nonspecific ST segment changes. He was given Lasix 40 mg IV in the emergency department. Medicine was consulted for admission. I did discuss goals of care the patient and he would like to be a DNR but he is okay with intubation as long as it is temporary. He would not want prolonged mechanical ventilation or tracheostomy. History - Past Medical History Cardiovascular: reports: Hypertension, High cholesterol Respiratory: reports: None Endocrine/Autoimmune: reports: Other GI: reports: GERD : reports: None HEENT: reports: None Psych: reports: None Musculoskeletal: reports: Osteoarthritis Derm: reports: None - Past Surgical History Ortho: reports: Knee replacement HEENT: reports: Other (Thyroidectomy) - Family & Social History Family History Comment/Other: Reports no family history. Living arrangement: At home Living Situation: With spouse/s.o. Social History Notes: Lives at home with his . He did smoke a pack a day fo r approximately 30 years but quit over 30 years ago. He was drinking occasional beer or glass of wine. No drug use. - Substance History Use: Uses substance without health or social issues: NONE Meds/Allgy - Home Medications Home Medications: Ambulatory Orders Medication Instructions Recorded Confirmed Albuterol [Proventil Hfa] 2 puffs INH Q4H PRN 02/04/20 02/04/20 Amiodarone [Pacerone] 200 mg PO DAILY 02/04/20 02/04/20 Apixaban [Eliquis] 5 mg PO BID 02/04/20 02/04/20 Felodipine [Felodipine ER] 5 mg PO DAILY 02/04/20 02/04/20 Fluticasone 220 Mcg [Flovent] 2 puffs INH BID 02/04/20 02/04/20 Furosemide 20 mg PO DAILY 02/04/20 02/04/20 Gabapentin 300 mg PO BID 02/04/20 02/04/20 Levothyroxine Sodium [Synthroid] 150 mcg PO QDAC 02/04/20 02/04/20 Losartan Potassium 100 mg PO DAILY 02/04/20 02/04/20 Magnesium Oxide [Mag Ox] 400 mg PO DAILY 02/04/20 02/04/20 Metoprolol Succinate [Toprol Xl] 100 mg PO DAILY 02/04/20 02/04/20 Multivitamin [Theragran] 1 tab PO DAILY 02/04/20 02/04/20 Omeprazole 20 mg PO QDAC 02/04/20 02/04/20 Oxycodone HCl/Acetaminophen 1 tab PO QPM 02/04/20 02/04/20 [Oxycodone-Acetaminophen 5-325] Salmeterol Xinafoate [Serevent 1 puffs INH BID 02/04/20 02/04/20 Diskus] Simvastatin 40 mg PO QPM 02/04/20 02/04/20 Tiotropium [place] [Spiriva] 18 mcg INH DAILY 02/04/20 02/04/20 - Allergies Allergies/Adverse Reactions: Allergies Allergy/AdvReac Type Severity Reaction Status Date / Time morphine Allergy Hallucinati Verified 02/04/20 09:17 ons Review of Systems - Constitutional Constitutional: reports: Poor appetite. denies: Fatigue, Fever, Chills, Weakness - Eyes Eyes: denies: Blurred vision, Vision loss - Cardiovascular Cariovascular: reports: Syncope. denies: Irregular heart rate, Palpitations, Chest pain, Edema, Lightheadedness, Exertional dyspnea, Decr. exercise tolerance, Orthopnea - Respiratory Respiratory: reports: Cough. denies: Sputum production, SOB at rest, SOB with exertion - Gastrointestinal Gastrointestinal: denies: Abdominal pain, Nausea, Vomiting - Genitourinary Genitourinary: denies: Dysuria, Frequency, Urgency, Hematuria - Musculoskeletal Musculoskeletal: denies: Muscle pain, Back pain, Limited range of motion, Muscle weakness - Integumentary Integumentary: denies: Rash - Neurological Neurological: denies: General weakness, Focal weakness, Dizziness, Numbness, Abnormal gait - All Other Systems All Other Systems: reports: Reviewed and negative Prior Level of Functionality: He is independent with his ADL's. Exam - Vital Signs Reviewed Vital Signs: Yes Vital Signs: Vital Signs x48h Temp Pulse Resp BP Pulse Ox 02/04/20 12:17 67 22 145/72 H 89 L 02/04/20 11:38 62 20 133/71 H 93 02/04/20 11:09 61 02/04/20 11:04 61 21 139/62 H 89 L 02/04/20 10:31 61 16 111/79 89 L 02/04/20 09:46 64 16 107/55 L 89 L 02/04/20 09:17 36.1 C L 64 25 H 138/66 H 88 L - Physical Exam General Appearance: positive: No acute distress, Alert Eyes Bilateral: positive: Normal inspection, Other (Pupil is dilated and not reactive to light. Right pupil is 3 mm and reactive to light. Patient reports his left pupil is always dilated.) ENT: positive: ENT inspection nml, Other (BiPAP mask in place.) Neck: positive: Nml inspection Respiratory: positive: No respiratory distress, Rales, Other (Although he is hypoxic requiring BiPAP, he is not in respiratory distress. He is tachypneic with respiratory rate in the low 20s. Breath sounds are diminished with rales present.). negative: Wheezes Cardiovascular: positive: Regular rate & rhythm, No murmur, Extrasystoles. negative: Tachycardia, Bradycardia, Systolic murmur Abdomen: positive: Non-tender, No distention. negative: Tenderness Skin: positive: No rash, Warm, Dry Extremities: positive: Full ROM, No pedal edema Neurologic/Psychiatric: positive: Oriented x3, Motor nml. negative: Disoriented to person, Disoriented to place, Disoriented to time Conclusion/Plan - Problem List (1) Acute on chronic respiratory failure with hypoxia Conclusion/Plan: He is now requiring BiPAP with an FiO2 of 55% to maintain an oxygen saturation of 88%. He is on 4 to 5 L of oxygen via nasal cannula at baseline. Suspect this is secondary to heart failure although we cannot rule out pneumonia. His chest x-ray shows bilateral airspace disease superimposed on pulmonary fibrosis. At this time, we will continue with BiPAP to maintain oxygen saturation greater than 88%. We will diuresis with IV Lasix. Start him on empiric antibio tics with azithromycin and ceftriaxone IV to cover for community-acquired pneumonia. We will check for COVID-19. Patient is agreeable to mechanical ventilation if need be but would not want prolonged mechanical ventilation or tracheostomy. He has clearly stated he does not want CPR. (2) Acute heart failure with preserved ejection fraction Conclusion/Plan: Suspect this is the cause of his acute hypoxic respiratory failure. His BNP is elevated in the 400s. An echocardiogram performed last month at [facility] showed a preserved ejection fraction although he did have RV dysfunction there was concern for pulmonary embolism but a CT angiogram was negative. He did have a right heart cath prior to discharge all this was after he was diuresed with IV Lasix which showed he was relatively euvolemic. At this time, we will continue him on IV Lasix 40 mg twice daily. Continue submental oxygen for goal saturation greater than 88%. Trend his BNP. Will consider repeating echocardiogram based on his trajectory. (3) Acute kidney injury Conclusion/Plan: Suspect this is likely prerenal in the setting of acute heart failure. His creatinine is elevated at 2.2 and his baseline is 1.0. We will diuresis with IV Lasix and monitor his renal function and urine output. Hold his home losartan. Check a renal ultrasound to rule out obstruction. (4) Community acquired pneumonia Conclusion/Plan: Chest x-ray shows bilateral infiltrates superimposed on pulmonary fibrosis/COPD. He does have a cough with slightly elevated white count. We will treat him empirically with ceftriaxone azithromycin IV. Check for COVID-19. Qualifiers: Lung location: unspecified part of lung (5) Paroxysmal atrial fibrillation Conclusion/Plan: He is currently in a sinus rhythm with PVCs. We will continue his home metoprol ol and amiodarone. Continue Eliquis. (6) COPD (chronic obstructive pulmonary disease) Conclusion/Plan: Does not appear to be in exacerbation. We will continue his home inhalers. (7) Syncope Conclusion/Plan: This appears to be secondary to his hypoxia. Echocardiogram at [facility] last month did not show any significant valvular abnormalities. We will hold off on checking orthostatics given his respiratory status at the moment and he is requiring BiPAP. We will monitor him on telemetry. Trend his troponins. (8) Hyperkalemia Conclusion/Plan: Testing elevated at 6.1 is likely due to his acute kidney injury. Timur has improved to 5.7. This should improve with IV diuresis and as his renal function improves. We will give him one-time dose of insulin and dextrose. Monitor daily. (9) Transaminitis Conclusion/Plan: LFTs are elevated and this is likely due to congestive hepatopathy due to heart failure. His LFTs were elevated during his prior hospitalization at [facility] although they were nearly normalized prior to discharge. They did not improve over next 24 hrs., will obtain ultrasound right upper quadrant (10) Hypertension Conclusion/Plan: Currently normotensive with systolic in the 120s. We will resume his home antihypertensives in the morning except for losartan given his acute kidney injury. (11) Hypothyroidism Conclusion/Plan: Stable. Continue Synthroid. - Lab Results Lab results reviewed: Yes Fish Bones: 02/04/20 10:20 02/04/20 15:24 - Diagnostic Imaging Results Diagnostic Imaging Results: positive: Final report reviewed - EKG Results EKG Interpreted Independently: Yes EKG Findings: EKG shows sinus rhythm with a prolonged IN interval. He does have 2 inversions in leads III and aVF. He has nonspecific T wave changes in V4 to V6 Core Measures - Anticipated LOS I expect patient to be DC'd or transferred within 96 hours.: Yes - Issues Hospital Issues and Management Plan: 85-year-old male with acute hypoxic respiratory failure suspected to be secondary to pneumonia and possible heart failure. He requires BiPAP and will be admitted to intensive care unit for IV antibiotics and IV diuresis.
[2020-02-04 14:02] LABS: BILIRUBIN,URINE NEGATIVE (NEGATIVE); GLUCOSE, URINE (UA) NEGATIVE (NEGATIVE); KETONES,URINE (UA) NEGATIVE (NEGATIVE); LEUKOCYTE ESTERASE, URINE NEGATIVE (NEGATIVE); NITRITE,URINE NEGATIVE (NEGATIVE); OCCULT BLOOD,URINE NEGATIVE (NEGATIVE); PROTEIN,URINE NEGATIVE (NEGATIVE); UROBILINOGEN,URINE 0.2 (NORMAL) E.U./dL (NORMAL)
[2020-02-04 14:04] LABS: CLARITY,URINE CLEAR (CLEAR)
--- NOTE | 2020-02-04 14:36 | PHARMACY PROGRESS NOTE ---
- Best Possible Medication History Admit Date and Time: 02/04/20 1338 Processed by: Pharmacy Medication History completed: Yes Patient Interview: Completed Secondary Source(s): Written medication list, Physician records, Pharmacy records, Insurance records As the person ultimately responsible for medication therapy, providers are able to order a medication from an existing home medication list in [facility] via the "Reconcile Routine" prior to Confirmation of that medication by functional support analyst. Such practice is discouraged except when the physician, in their clinical judgment, deems that a medical need exists for a medication without regard to previous use.
[2020-02-04 15:46] LABS: CALCIUM 8.5 mg/dL (8.5-10.3); CREATININE 2.1 mg/dL (0.6-1.2)
[2020-02-04] MEDS ORDERED: ALBUTEROL INH PRN (15:54)
[2020-02-04] MEDS ORDERED: ALBUTEROL NEB 2.5 MG/3 ML INH PRN (16:39)
[2020-02-04] MEDS: AZITHROMYCIN INJ 500 MG in SODIUM CHLORIDE 0.9% 250 ML IV SCH (17:44)
[2020-02-04] MEDS: SODIUM CHLORIDE FLUSH 0.9% 10 ML SYRINGE IVP SCH ×2 (17:54→20:28)
[2020-02-04] MEDS: FORMOTEROL FUMARATE NEB 20 MCG/2 ML INH SCH (18:16)
[2020-02-04] MEDS: IPRATROPIUM/ALBUTEROL 3 ML NEB INH SCH (18:16)
[2020-02-04] MEDS: BUDESONIDE 0.5 MG/2 ML NEB INH SCH (18:16)
[2020-02-04] MEDS: cefTRIAXone 2 GM in SODIUM CHLORIDE 0.9% MINIBAG 100 ML IV SCH (18:55)
[2020-02-04] MEDS ORDERED: IPRATROPIUM 0.2 MG/ML NEB INH SCH (19:00)
[2020-02-04] MEDS: APIXABAN 2.5 MG TABLET PO SCH (20:27)
[2020-02-04] MEDS: ATORVASTATIN 10 MG TABLET PO SCH (20:27)
[2020-02-04] MEDS: GABAPENTIN 300 MG CAPSULE PO SCH (20:28)
[2020-02-04] MEDS ORDERED: FLUTICASONE 220 MCG INH SCH (21:00)
[2020-02-04] MEDS ORDERED: HEPARIN 5,000 UNIT/ML VIAL SUBQ SCH (21:00)
--- NOTE | 2020-02-05 03:06 | Ultrasound Report ---
Reason: acute kidney injury Procedure Date: 02/05/2020 Accession Number: [id number] / [id number] Procedure: US - Retroperitoneal Limited CPT Code: Final Report FULL RESULT: EXAM: RENAL ULTRASOUND EXAM DATE: 02/05/2020 01:30 AM CLINICAL HISTORY: Acute kidney injury. COMPARISON: CHEST W/WO 12/28/2017 11:58 AM. TECHNIQUE: Real-time scanning was performed with static images obtained. FINDINGS: Right Kidney: 10.3 x 5.7 x 4.5 cm. Increased echotexture with no solid-appearing masses or hydronephrosis. Couple of small cysts measuring up to 8 mm. No imaging follow-up required per concensus recommendations based on imaging criteria. Left Kidney: 9.5 x 5.4 x 5.1 cm. Increased echotexture with no solid-appearing masses or hydronephrosis. Cyst measuring up to 2 cm at the lower pole. No imaging follow-up required per concensus recommendations based on imaging criteria. Bladder: Decompressed with Oden. Other: None. IMPRESSION: 1. No hydronephrosis as cause of renal failure. 2. Suspect medical renal disease. RADIA
[2020-02-05 05:03] LABS: BASOPHILS # (AUTO) 0.1 10^3/uL (0.0-0.1); BASOPHILS % (AUTO) 0.5 %; EOSINOPHILS # (AUTO) 0.1 10^3/uL (0.0-0.7); EOSINOPHILS % (AUTO) 0.9 %; HGB - HEMOGLOBIN 12.7 g/dL (14.0-18.0); LYMPHOCYTES # (AUTO) 1.1 10^3/uL (1.5-3.5); LYMPHOCYTES % (AUTO) 10.5 %; MEAN CORPUSCULAR HEMOGLOBIN 28.3 pg (27.0-31.0); MEAN CORPUSCULAR HGB CONC 29.3 g/dL (32.0-36.0); MEAN CORPUSCULAR VOLUME 96.4 fL (80.0-94.0); MEAN PLATELET VOLUME 10.2 fL (7.4-11.4); MONOCYTES # (AUTO) 0.7 10^3/uL (0.0-1.0); MONOCYTES % (AUTO) 6.9 %; NEUTROPHILS # (AUTO) 8.6 10^3/uL (1.5-6.6); NEUTROPHILS % (AUTO) 80.5 %; PLT - PLATELET COUNT 211 10^3/uL (130-450); RED BLOOD COUNT 4.49 10^6/uL (4.70-6.10); RED CELL DISTRIBUTION WIDTH 15.9 % (12.0-15.0); WHITE BLOOD COUNT 10.6 x10^3/uL (4.8-10.8)
[2020-02-05 05:14] LABS: CALCIUM 8.5 mg/dL (8.5-10.3); CREATININE 1.7 mg/dL (0.6-1.2); MAGNESIUM 2.8 mg/dL (1.7-2.8); PHOSPHORUS 3.3 mg/dL (2.5-4.6)
[2020-02-05] MEDS: SODIUM CHLORIDE FLUSH 0.9% 10 ML SYRINGE IVP PRN (05:47)
[2020-02-05] MEDS ORDERED: FUROSEMIDE 40 MG/4 ML VIAL IVP SCH (06:00)
[2020-02-05] MEDS: LEVOTHYROXINE 75 MCG TABLET PO SCH (06:34)
[2020-02-05] MEDS: PANTOPRAZOLE 40 MG TABLET PO SCH (06:35)
[2020-02-05] MEDS ORDERED: METOPROLOL SUCCINATE 50 MG TABLET PO ONE (07:10)
[2020-02-05] MEDS: METOPROLOL SUCCINATE 50 MG TABLET PO SCH (07:11)
--- NOTE | 2020-02-05 07:25 | PROVIDER PROGRESS NOTE ---
Subjective - Prog Note Date Prog Note Date: 02/05/20 - Subjective Subjective: He remained on BiPAP overnight. This morning he went into atrial fibrillation with RVR. His heart rate had increased to the 150's. This occurred after he had a coughing episode. This morning, he continues to deny feeling short of breath. Continues to endorse a cough but now it is productive with "nasty" colored sputum. He would like to take the BiPAP mask off. Current Medications - Current Medications Current Medications: Active Medications Acetaminophen (Tylenol) 650 mg PO Q4HR PRN PRN Reason: Pain 1 to 4 Albuterol () 2.5 mg INH RTQ4H PRN PRN Reason: Wheezing Albuterol/Ipratropium (Duoneb) 3 ml INH RTQID [facility] Last Admin: 02/05/20 09:21 Dose: 3 ml Amiodarone HCl (Pacerone) 200 mg PO DAILY [facility] Last Admin: 02/05/20 09:00 Dose: 200 mg Apixaban (Eliquis) 2.5 mg PO BID [facility] Last Admin: 02/05/20 08:04 Dose: 2.5 mg Atorvastatin Calcium (Lipitor) 20 mg PO QPM [facility] Last Admin: 02/04/20 20:27 Dose: 20 mg Budesonide (Pulmicort) 0.5 mg INH RTBID [facility] Last Admin: 02/05/20 09:21 Dose: 0.5 mg Formoterol Fumarate (Perforomist) 20 mcg INH RTBID [facility] Last Admin: 02/05/20 09:21 Dose: 20 mcg Furosemide (Lasix Inj 40 Mg Vial) 60 mg IVP BIDDIURETIC [facility] Gabapentin (Neurontin) 300 mg PO BID [facility] Last Admin: 02/05/20 08:04 Dose: 300 mg Azithromycin 500 mg/ Sodium (Chloride) 250 mls @ 250 mls/hr IV DAILY [facility] Stop: 02/06/20 09:59 Last Admin: 02/05/20 09:10 Dose: 250 mls/hr Ceftriaxone Sodium 2 gm/ (Sodium Chloride) 100 mls @ 200 mls/hr IV DAILY [facility] Stop: 02/08/20 09:29 Last Infusion: 02/05/20 08:32 Dose: Infused Levothyroxine Sodium (Synthroid) 150 mcg PO QDAC [facility] Last Admin: 05/13/20 06:34 Dose: 150 mcg Magnesium Oxide (Mag Ox) 400 mg PO DAILY [facility] Last Admin: 02/05/20 09:00 Dose: 400 mg Metoprolol Succinate (Toprol Xl) 100 mg PO DAILY [facility] Last Admin: 02/05/20 07:11 Dose: 100 mg Multivitamins (Theragran) 1 tab PO DAILY [facility] Last Admin: 02/05/20 09:00 Dose: 1 tab Pantoprazole Sodium (Protonix) 40 mg PO QDAC [facility] Last Admin: 02/05/20 06:35 Dose: 40 mg Sodium Chloride (Normal Saline Flush 0.9%) 10 ml IVP 0100,0900,1700 [facility] Last Admin: 02/05/20 08:05 Dose: 10 ml Sodium Chloride (Normal Saline Flush 0.9%) 10 ml IVP PRN PRN PRN Reason: NEEDED PER PROVIDER ORDERS Last Admin: 02/05/20 05:47 Dose: 10 ml Albuterol [Proventil Hfa] 2 puffs INH Q4H PRN 02/04/20 Amiodarone [Pacerone] 200 mg PO DAILY 02/04/20 Apixaban [Eliquis] 5 mg PO BID 02/04/20 Felodipine [Felodipine ER] 5 mg PO DAILY 02/04/20 Fluticasone 220 Mcg [Flovent] 2 puffs INH BID 02/04/20 Furosemide 20 mg PO DAILY 02/04/20 Gabapentin 300 mg PO BID 02/04/20 Levothyroxine Sodium [Synthroid] 150 mcg PO QDAC 02/04/20 Losartan Potassium 100 mg PO DAILY 02/04/20 Magnesium Oxide [Mag Ox] 400 mg PO DAILY 02/04/20 Metoprolol Succinate [Toprol Xl] 100 mg PO DAILY 02/04/20 Multivitamin [Theragran] 1 tab PO DAILY 02/04/20 Omeprazole 20 mg PO QDAC 02/04/20 Oxycodone HCl/Acetaminophen [Oxycodone-Acetaminophen 5-325] 1 tab PO QPM 02/04/20 Salmeterol Xinafoate [Serevent Diskus] 1 puffs INH BID 02/04/20 Simvastatin 40 mg PO QPM 02/04/20 Tiotropium [place] [Spiriva] 18 mcg INH DAILY 02/04/20 Objective - Vital Signs/Intake & Output Reviewed Vital Signs: Yes Vital Signs: Vital Signs Temp Pulse Pulse Resp BP Pulse Ox 02/05/20 07:00 141 H 23 102/71 90 L 02/05/20 06:00 37.4 C 82 24 124/58 L 91 L 02/05/20 05:00 81 24 122/60 91 L 02/05/20 04:57 89 02/05/20 04:00 37.4 C 81 26 H 124/56 L 91 L Intake & Output: Intake & Output 02/02/20 02/03/20 02/04/20 02/05/20 23:59 23:59 23:59 23:59 Intake Total 720 325 Output Total 1545 1010 Balance -822 -065 - Objective General Appearance: positive: Alert, Mild distress Eyes Bilateral: positive: Normal inspection ENT: positive: ENT inspection nml, Other (BiPAP mask in place/) Neck: positive: Nml inspection Respiratory: positive: Rales, Other (He is more tachypnic today. Appears in mild respiratory distress. Breath sounds diminished with rales noted.). negative: Wheezes Cardiovascular: positive: No murmur, Irregularly irregular, Tachycardia. negative: Bradycardia, Systolic murmur Abdomen: positive: Non-tender, No distention. negative: Tenderness Skin: positive: Warm, Dry Extremities: positive: Full ROM, No pedal edema Neurologic/Psychiatric: positive: Oriented x3. negative: Disoriented to person, Disoriented to place, Disoriented to time - Lab Results Fish Bones: 02/05/20 04:30 02/05/20 04:30 Other Labs: Lab Results x24hrs 02/05/20 02/05/20 02/04/20 Range/Units 04:30 04:30 16:55 WBC 10.6 (4.8-10.8) x10^3/uL RBC 4.49 L (4.70-6.10) 10^6/uL Hgb 12.7 L (14.0-18.0) g/dL Hct 43.3 (42.0-52.0) % MCV 96.4 H (80.0-94.0) fL MCH 28.3 (27.0-31.0) pg MCHC 29.3 L (32.0-36.0) g/dL RDW 15.9 H (12.0-15.0) % Plt Count 211 (130-450) 10^3/uL MPV 10.2 (7.4-11.4) fL Neut # (Auto) 8.6 H (1.5-6.6) 10^3/uL Lymph # (Auto) 1.1 L (1.5-3.5) 10^3/uL [place] # (Auto) 0.7 (0.0-1.0) 10^3/uL Eos # (Auto) 0.1 (0.0-0.7) 10^3/uL Baso # (Auto) 0.1 (0.0-0.1) 10^3/uL Absolute Nucleated RBC 0.00 x10^3/uL Nucleated RBC % 0.0 /100WBC Bld Gas Analysis Time Sample Site ABG pH (7.35-7.45) ABG pCO2 (34-45) mmHg ABG pO2 (80-100) mmHg ABG HCO3 (22.0-26.0) mmol/L ABG Total CO2 (21.0-29.0) MMOL/L ABG O2 Saturation (94-98) % ABG Base Excess (-2.0-3.0) mmol/L [place] Test O2 Delivery Device O2 Liters/Min LPM FiO2 Sodium 139 (135-145) mmol/L Potassium 4.9 (3.5-5.0) mmol/L Chloride 107 (101-111) mmol/L Carbon Dioxide 24 (21-32) mmol/L Anion Gap 8.0 (6-13) BUN 48 H (6-20) mg/dL Creatinine 1.7 H (0.6-1.2) mg/dL Estimated GFR (MDRD) 38 L (>89) Glucose 102 H (70-100) mg/dL Lactic Acid (0.5-2.2) mmol/L Calcium 8.5 (8.5-10.3) mg/dL Phosphorus 3.3 (2.5-4.6) mg/dL Magnesium 2.8 (1.7-2.8) mg/dL Total Bilirubin (0.2-1.0) mg/dL AST (10-42) IU/L ALT (10-60) IU/L Alkaline Phosphatase (42-121) IU/L Troponin I High Sens 15.6 (2.3-19.7) ng/L B-Natriuretic Peptide (5-100) pg/mL Total Protein (6.7-8.2) g/dL Albumin (3.2-5.5) g/dL Globulin (2.1-4.2) g/dL Albumin/Globulin Ratio (1.0-2.2) Lipase (22-51) U/L Urine Color Urine Clarity (CLEAR) Urine pH (5.0-7.5) PH Ur Specific [place] Gap (1.002-1.030) Urine Protein (NEGATIVE) mg/dL Urine Glucose (UA) (NEGATIVE) mg/dL Urine Ketones (NEGATIVE) mg/dL Urine Occult Blood (NEGATIVE) Urine Nitrite (NEGATIVE) Urine Bilirubin (NEGATIVE) Urine Urobilinogen (NORMAL) E.U./dL Ur Leukocyte Esterase (NEGATIVE) Ur Microscopic Review Urine Culture Comments Nasal Screen MRSA (PCR) (NEGATIVE) Coronavirus (PCR) 02/04/20 02/04/20 02/04/20 Range/Units 15:37 15:24 15:24 WBC (4.8-10.8) x10^3/uL RBC (4.70-6.10) 10^6/uL Hgb (14.0-18.0) g/dL Hct (42.0-52.0) % MCV (80.0-94.0) fL MCH (27.0-31.0) pg MCHC (32.0-36.0) g/dL RDW (12.0-15.0) % Plt Count (130-450) 10^3/uL MPV (7.4-11.4) fL Neut # (Auto) (1.5-6.6) 10^3/uL Lymph # (Auto) (1.5-3.5) 10^3/uL [place] # (Auto) (0.0-1.0) 10^3/uL Eos # (Auto) (0.0-0.7) 10^3/uL Baso # (Auto) (0.0-0.1) 10^3/uL Absolute Nucleated RBC x10^3/uL Nucleated RBC % /100WBC Bld Gas Analysis Time Sample Site ABG pH (7.35-7.45) ABG pCO2 (34-45) mmHg ABG pO2 (80-100) mmHg ABG HCO3 (22.0-26.0) mmol/L ABG Total CO2 (21.0-29.0) MMOL/L ABG O2 Saturation (94-98) % ABG Base Excess (-2.0-3.0) mmol/L [place]ario Test O2 Delivery Device O2 Liters/Min LPM FiO2 Sodium 139 (135-145) mmol/L Potassium 5.7 H (3.5-5.0) mmol/L Chloride 101 (101-111) mmol/L Carbon Dioxide 27 (21-32) mmol/L Anion Gap 11.0 (6-13) BUN 59 H (6-20) mg/dL Creatinine 2.1 H (0.6-1.2) mg/dL Estimated GFR (MDRD) 30 L (>89) Glucose 112 H (70-100) mg/dL Lactic Acid (0.5-2.2) mmol/L Calcium 8.5 (8.5-10.3) mg/dL Phosphorus (2.5-4.6) mg/dL Magnesium (1.7-2.8) mg/dL Total Bilirubin (0.2-1.0) mg/dL AST (10-42) IU/L ALT (10-60) IU/L Alkaline Phosphatase (42-121) IU/L Troponin I High Sens 19.6 (2.3-19.7) ng/L B-Natriuretic Peptide (5-100) pg/mL Total Protein (6.7-8.2) g/dL Albumin (3.2-5.5) g/dL Globulin (2.1-4.2) g/dL Albumin/Globulin Ratio (1.0-2.2) Lipase (22-51) U/L Urine Color Urine Clarity (CLEAR) Urine pH (5.0-7.5) PH Ur Specific [place] (1.002-1.030) Urine Protein (NEGATIVE) mg/dL Urine Glucose (UA) (NEGATIVE) mg/dL Urine Ketones (NEGATIVE) mg/dL Urine Occult Blood (NEGATIVE) Urine Nitrite (NEGATIVE) Urine Bilirubin (NEGATIVE) Urine Urobilinogen (NORMAL) E.U./dL Ur Leukocyte Esterase (NEGATIVE) Ur Microscopic Review Urine Culture Comments Nasal Screen MRSA (PCR) NEGATIVE (NEGATIVE) Coronavirus (PCR) 02/04/20 02/04/20 02/04/20 Range/Units 13:48 11:45 10:56 WBC (4.8-10.8) x10^3/uL RBC (4.70-6.10) 10^6/uL Hgb (14.0-18.0) g/dL Hct (42.0-52.0) % MCV (80.0-94.0) fL MCH (27.0-31.0) pg MCHC (32.0-36.0) g/dL RDW (12.0-15.0) % Plt Count (130-450) 10^3/uL MPV (7.4-11.4) fL Neut # (Auto) (1.5-6.6) 10^3/uL Lymph # (Auto) (1.5-3.5) 10^3/uL [place] # (Auto) (0.0-1.0) 10^3/uL Eos # (Auto) (0.0-0.7) 10^3/uL Baso # (Auto) (0.0-0.1) 10^3/uL Absolute Nucleated RBC x10^3/uL Nucleated RBC % /100WBC Bld Gas Analysis Time Sample Site ABG pH (7.35-7.45) ABG pCO2 (34-45) mmHg ABG pO2 (80-100) mmHg ABG HCO3 (22.0-26.0) mmol/L ABG Total CO2 (21.0-29.0) MMOL/L ABG O2 Saturation (94-98) % ABG Base Excess (-2.0-3.0) mmol/L [place] Test O2 Delivery Device O2 Liters/Min LPM FiO2 Sodium (135-145) mmol/L Potassium (3.5-5.0) mmol/L Chloride (101-111) mmol/L Carbon Dioxide (21-32) mmol/L Anion Gap (6-13) BUN (6-20) mg/dL Creatinine (0.6-1.2) mg/dL Estimated GFR (MDRD) (>89) Glucose (70-100) mg/dL Lactic Acid 1.6 (0.5-2.2) mmol/L Calcium (8.5-10.3) mg/dL Phosphorus (2.5-4.6) mg/dL Magnesium (1.7-2.8) mg/dL Total Bilirubin (0.2-1.0) mg/dL AST (10-42) IU/L ALT (10-60) IU/L Alkaline Phosphatase (42-121) IU/L Troponin I High Sens (2.3-19.7) ng/L B-Natriuretic Peptide (5-100) pg/mL Total Protein (6.7-8.2) g/dL Albumin (3.2-5.5) g/dL Globulin (2.1-4.2) g/dL Albumin/Globulin Ratio (1.0-2.2) Lipase (22-51) U/L Urine Color YELLOW Urine Clarity CLEAR (CLEAR) Urine pH 5.0 (5.0-7.5) PH Ur Specific [place] 1.025 (1.002-1.030) Urine Protein NEGATIVE (NEGATIVE) mg/dL Urine Glucose (UA) NEGATIVE (NEGATIVE) mg/dL Urine Ketones NEGATIVE (NEGATIVE) mg/dL Urine Occult Blood NEGATIVE (NEGATIVE) Urine Nitrite NEGATIVE (NEGATIVE) Urine Bilirubin NEGATIVE (NEGATIVE) Urine Urobilinogen 0.2 (NORMAL) (NORMAL) E.U./dL Ur Leukocyte Esterase NEGATIVE (NEGATIVE) Ur Microscopic Review NOT INDICATED Urine Culture Comments NOT INDICATED Nasal Screen MRSA (PCR) (NEGATIVE) Coronavirus (PCR) NEGATIVE 02/04/20 02/04/20 02/04/20 Range/Units 10:20 10:20 10:20 WBC (4.8-10.8) x10^3/uL RBC (4.70-6.10) 10^6/uL Hgb (14.0-18.0) g/dL Hct (42.0-52.0) % MCV (80.0-94.0) fL MCH (27.0-31.0) pg MCHC (32.0-36.0) g/dL RDW (12.0-15.0) % Plt Count (130-450) 10^3/uL MPV (7.4-11.4) fL Neut # (Auto) (1.5-6.6) 10^3/uL Lymph # (Auto) (1.5-3.5) 10^3/uL [place] # (Auto) (0.0-1.0) 10^3/uL Eos # (Auto) (0.0-0.7) 10^3/uL Baso # (Auto) (0.0-0.1) 10^3/uL Absolute Nucleated RBC x10^3/uL Nucleated RBC % /100WBC Bld Gas Analysis Time Sample Site ABG pH (7.35-7.45) ABG pCO2 (34-45) mmHg ABG pO2 (80-100) mmHg ABG HCO3 (22.0-26.0) mmol/L ABG Total CO2 (21.0-29.0) MMOL/L ABG O2 Saturation (94-98) % ABG Base Excess (-2.0-3.0) mmol/L [place] Test O2 Delivery Device O2 Liters/Min LPM FiO2 Sodium 140 (135-145) mmol/L Potassium 6.1 H* (3.5-5.0) mmol/L Chloride 104 (101-111) mmol/L Carbon Dioxide 26 (21-32) mmol/L Anion Gap 10.0 (6-13) BUN 63 H (6-20) mg/dL Creatinine 2.2 H (0.6-1.2) mg/dL Estimated GFR (MDRD) 29 L (>89) Glucose 138 H (70-100) mg/dL Lactic Acid (0.5-2.2) mmol/L Calcium 8.5 (8.5-10.3) mg/dL Phosphorus (2.5-4.6) mg/dL Magnesium (1.7-2.8) mg/dL Total Bilirubin 0.8 (0.2-1.0) mg/dL AST 182 H (10-42) IU/L ALT 195 H (10-60) IU/L Alkaline Phosphatase 69 (42-121) IU/L Troponin I High Sens 12.3 (2.3-19.7) ng/L B-Natriuretic Peptide 421 H (5-100) pg/mL Total Protein 7.0 (6.7-8.2) g/dL Albumin 3.2 (3.2-5.5) g/dL Globulin 3.8 (2.1-4.2) g/dL Albumin/Globulin Ratio 0.8 L (1.0-2.2) Lipase 30 (22-51) U/L Urine Color Urine Clarity (CLEAR) Urine pH (5.0-7.5) PH Ur Specific [place] (1.002-1.030) Urine Protein (NEGATIVE) mg/dL Urine Glucose (UA) (NEGATIVE) mg/dL Urine Ketones (NEGATIVE) mg/dL Urine Occult Blood (NEGATIVE) Urine Nitrite (NEGATIVE) Urine Bilirubin (NEGATIVE) Urine Urobilinogen (NORMAL) E.U./dL Ur Leukocyte Esterase (NEGATIVE) Ur Microscopic Review Urine Culture Comments Nasal Screen MRSA (PCR) (NEGATIVE) Coronavirus (PCR) 02/04/20 02/04/20 Range/Units 10:20 10:15 WBC 11.0 H (4.8-10.8) x10^3/uL RBC 4.72 (4.70-6.10) 10^6/uL Hgb 13.8 L (14.0-18.0) g/dL Hct 46.8 (42.0-52.0) % MCV 99.2 H (80.0-94.0) fL MCH 29.2 (27.0-31.0) pg MCHC 29.5 L (32.0-36.0) g/dL RDW 15.6 H (12.0-15.0) % Plt Count 220 (130-450) 10^3/uL MPV 10.0 (7.4-11.4) fL Neut # (Auto) 9.6 H (1.5-6.6) 10^3/uL Lymph # (Auto) 0.4 L (1.5-3.5) 10^3/uL [place] # (Auto) 0.9 (0.0-1.0) 10^3/uL Eos # (Auto) 0.0 (0.0-0.7) 10^3/uL Baso # (Auto) 0.0 (0.0-0.1) 10^3/uL Absolute Nucleated RBC 0.00 x10^3/uL Nucleated RBC % 0.0 /100WBC Bld Gas Analysis Time 1015 Sample Site RIGHT BRACHIAL ABG pH 7.31 L (7.35-7.45) ABG pCO2 49 H (34-45) mmHg ABG pO2 53 L* (80-100) mmHg ABG HCO3 24.1 (22.0-26.0) mmol/L ABG Total CO2 25.6 (21.0-29.0) MMOL/L ABG O2 Saturation 82 L* (94-98) % ABG Base Excess -2.6 L (-2.0-3.0) mmol/L [place] Test POSITIVE O2 Delivery Device NON REBREATHER MASK O2 Liters/Min 15.00 LPM FiO2 100.00 Sodium (135-145) mmol/L Potassium (3.5-5.0) mmol/L Chloride (101-111) mmol/L Carbon Dioxide (21-32) mmol/L Anion Gap (6-13) BUN (6-20) mg/dL Creatinine (0.6-1.2) mg/dL Estimated GFR (MDRD) (>89) Glucose (70-100) mg/dL Lactic Acid (0.5-2.2) mmol/L Calcium (8.5-10.3) mg/dL Phosphorus (2.5-4.6) mg/dL Magnesium (1.7-2.8) mg/dL Total Bilirubin (0.2-1.0) mg/dL AST (10-42) IU/L ALT (10-60) IU/L Alkaline Phosphatase (42-121) IU/L Troponin I High Sens (2.3-19.7) ng/L B-Natriuretic Peptide (5-100) pg/mL Total Protein (6.7-8.2) g/dL Albumin (3.2-5.5) g/dL Globulin (2.1-4.2) g/dL Albumin/Globulin Ratio (1.0-2.2) Lipase (22-51) U/L Urine Color Urine Clarity (CLEAR) Urine pH (5.0-7.5) PH Ur Specific [place] (1.002-1.030) Urine Protein (NEGATIVE) mg/dL Urine Glucose (UA) (NEGATIVE) mg/dL Urine Ketones (NEGATIVE) mg/dL Urine Occult Blood (NEGATIVE) Urine Nitrite (NEGATIVE) Urine Bilirubin (NEGATIVE) Urine Urobilinogen (NORMAL) E.U./dL Ur Leukocyte Esterase (NEGATIVE) Ur Microscopic Review Urine Culture Comments Nasal Screen MRSA (PCR) (NEGATIVE) Coronavirus (PCR) Assessment/Plan - Problem List (1) Acute on chronic respiratory failure with hypoxia Impression: Continues to require BiPAP with FiO2 of 60% to maintain oxygen saturation of 88%. We did trial him on an oxygen mask at 10 L of oxygen this morning and his saturation dropped into the 70s. He reported no dyspnea at that time. The plethth was poor and so we obtained an ABG which did confirm the hypoxia as his PO2 was 36.4. He has since been placed back on BiPAP with FiO2 of 60%. His oxygen saturations remained stable at greater than 88%. Suspect his respiratory failure is related to pneumonia and heart failure. Doubt pulmonary embolism given he is on anticoagulation he had a negative CT angiogram and duplex of lower extremities last month at [place]. We will increase his diuresis to 60 mg IV twice daily. We will also continue with IV antibiotics. Continue BiPAP as tolerated. I spoke with his on the phone to give her an update regarding her medical condition. She is concerned and stressed at home that he is requiring some extra oxygen and that he was only home for a little over 2 weeks before he was hospitalized again. We discussed the concern for pneumonia and heart failure as a cause of his hypoxia and that we are treating him with IV antibiotics and IV diuresis. 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 I told her that at this time, it is unlikely they would do anything different from a medical perspective. I did tell her that the patient does not improve over the next 24 hours, then we can consider transfer to a higher level of care. I also asked the patient how he felt about transfer and he stated that he felt that a transfer this time would not be worthwhile. He also was agreeable to seeing how his clinical condition changes over the next 24 hours before considering transfer. (2) Acute heart failure with preserved ejection fraction Impression: Suspect this is contributing to his heart failure and was likely exacerbated by his A. fib with RVR this morning. Repeat chest x-ray this morning shows stable bilateral opacities. We will increase his Lasix to 60 mg twice daily. Continue with daily weights and strict I's and O's. Check BNP in the morning. We will hold off on repeating echocardiogram for time being given he had one a few weeks ago in [place] where his ejection fraction was preserved. (3) Paroxysmal atrial fibrillation with RVR Impression: He went into atrial fibrillation with rapid ventricular response this morning. His heart rates were as elevated as a 150s. He did appear more dyspneic during this episode. He was given Lopressor 5 mg IV in addition to his home metoprolol dose. As his heart remained elevated, we give him a one-time dose of digoxin IV. He is now back in a sinus rhythm with heart rates in the 60s. We will continue his home oral metoprolol and amiodarone. Continue Eliquis for anticoagulation. Continue to monitor on telemetry. (4) Acute kidney injury Impression: This is likely prerenal secondary to his heart failure. His creatinine has improved to 1.7 today and his baseline is 1.0. We will continue with IV diuresis. Monitor renal function and urine output. Avoid nephrotoxins. (5) Community acquired pneumonia Impression: His chest x-ray does show bilateral opacities and is unclear if this is pneumonia or heart failure. Given his respiratory failure and productive cough, we will continue him on IV antibiotics with ceftriaxone and azithromycin with today being day 2. Repeat chest x-ray today showed stable bilateral opacities. He is negative for COVID-19. Qualifiers: Lung location: unspecified part of lung (6) COPD (chronic obstructive pulmonary disease) Impression: This does not appear to be in exacerbation. He is on 5 L of oxygen at baseline secondary to his COPD/pulmonary fibrosis. We will continue with duo nebs 4 time s daily as well as formoterol and budesonide. (7) Syncope Impression: This was likely secondary to his hypoxia. We will continue to monitor him on telemetry although there have been no significant arrhythmias except for his atrial fibrillation. We will hold off on repeating echocardiogram as he had one last month. (8) Transaminitis Impression: LFTs were elevated on admission likely due to congestive hepatopathy due to his heart failure. We will check his LFTs in the morning. Continue with treating his underlying heart failure. (9) Hypertension Impression: He has remained normotensive despite holding his home felodipine and losartan. We will continue to hold losartan given his acute kidney injury. We will also continue to hold his felodipine as he has remained normotensive at this time. (10) Hypothyroidism Impression: Stable. Continue his home Synthroid. (11) Hyperkalemia Impression: Secondary to his acute kidney injury and has since resolved.
[2020-02-05] MEDS ORDERED: METOPROLOL 5 MG/5 ML VIAL IVP SCH (07:55)
[2020-02-05] MEDS: cefTRIAXone 2 GM in SODIUM CHLORIDE 0.9% MINIBAG 100 ML IV SCH (08:00)
[2020-02-05] MEDS: APIXABAN 2.5 MG TABLET PO SCH ×2 (08:04→20:42)
[2020-02-05] MEDS: GABAPENTIN 300 MG CAPSULE PO SCH ×2 (08:04→20:42)
[2020-02-05] MEDS: SODIUM CHLORIDE FLUSH 0.9% 10 ML SYRINGE IVP SCH ×2 (08:05→17:36)
[2020-02-05 08:09] LABS: ABG BASE EXCESS -0.2 mmol/L (-2.0-3.0); ABG HCO3 24.2 mmol/L (22.0-26.0); ABG PCO2 39 mmHg (34-45); ABG PH 7.41 (7.35-7.45); ABG TCO2 25.4 MMOL/L (21.0-29.0)
[2020-02-05 08:10] LABS: ALLEN TEST POSITIVE
[2020-02-05 08:13] LABS: ABG PO2 36 mmHg (80-100)
[2020-02-05 08:14] LABS: ABG OXYGEN SATURATION 72 % (94-98)
[2020-02-05] MEDS: AMIODARONE 200 MG TABLET PO SCH (09:00)
[2020-02-05] MEDS: MAGNESIUM OXIDE 400 MG TABLET PO SCH (09:00)
[2020-02-05] MEDS: MULTIVITAMIN TABLET PO SCH (09:00)
[2020-02-05] MEDS: AZITHROMYCIN INJ 500 MG in SODIUM CHLORIDE 0.9% 250 ML IV SCH (09:10)
[2020-02-05] MEDS ORDERED: DIGOXIN 500 MCG/2 ML AMP IVP STA (09:21)
[2020-02-05] MEDS: IPRATROPIUM/ALBUTEROL 3 ML NEB INH SCH ×4 (09:21→21:45)
[2020-02-05] MEDS: FORMOTEROL FUMARATE NEB 20 MCG/2 ML INH SCH ×2 (09:21→21:45)
[2020-02-05] MEDS: BUDESONIDE 0.5 MG/2 ML NEB INH SCH ×2 (09:21→21:45)
--- NOTE | 2020-02-05 09:46 | XRAY Report ---
Reason: Hypoxia. Follow up infiltrates. Procedure Date: 02/05/2020 Accession Number: [id number] / [id number] Procedure: XR - Chest 1 View X-Ray CPT Code: 79680 Final Report FULL RESULT: EXAM: CHEST RADIOGRAPHY EXAM DATE: 02/05/2020 08:50 AM. CLINICAL HISTORY: Dyspnea COMPARISON: CHEST 1 VIEW 02/04/2020 9:46 AM. TECHNIQUE: 1 view. FINDINGS: Lungs/Pleura: There are coarse mid and lower lung opacities, not significantly changed as compared to the previous examination. Lung volumes are stable. There is no evidence of pneumothorax. Mediastinum: There is cardiomegaly. There is thoracic aortic calcification. Other: None. IMPRESSION: 1. There is cardiomegaly. 2. Lung volumes are stable. 3. Coarse bilateral mid and lower lung opacities are relatively stable. No new areas of airspace disease are seen. 4. There is no pneumothorax. [facility]
[2020-02-05] MEDS: FUROSEMIDE 40 MG/4 ML VIAL IVP SCH (14:13)
[2020-02-05] MEDS ORDERED: DOCUSATE SODIUM 250 MG CAPSULE PO SCH (19:00)
--- NOTE | 2020-02-05 19:59 | Ultrasound Report ---
Reason: Lower extremity swelling. Procedure Date: 02/05/2020 Accession Number: [id number] / [id number] Procedure: US - Duplex Ext Veins Bilateral CPT Code: Final Report FULL RESULT: EXAM: BILATERAL LOWER EXTREMITY VENOUS ULTRASOUND EXAM DATE: 02/05/2020 07:08 PM. CLINICAL HISTORY: Lower extremity swelling. COMPARISON: None. TECHNIQUE: Real-time sonographic vascular imaging was performed by the infection control coordinator through the lower extremities utilizing both color-flow and Doppler spectral analysis. Multiple parts sales representative static images were saved for review. FINDINGS: Right: Common Femoral Vein (CFV): Normal. CFV-GSV Junction: Normal. Profunda Femoral Vein (PFV): Normal. Femoral Vein (FV) Prox: Normal. Femoral Vein (FV) Mid: Normal. Femoral Vein (FV) Dist: Normal. Popliteal Vein: Normal. Posterior Tibial Veins: Normal. Peroneal Veins: Normal. Left: Common Femoral Vein (CFV): Normal. CFV-GSV Junction: Normal. Profunda Femoral Vein (PFV): Normal. Femoral Vein (FV) Prox: Normal. Femoral Vein (FV) Mid: Normal. Femoral Vein (FV) Dist: Normal. Popliteal Vein: Normal. Posterior Tibial Veins: Normal. Peroneal Veins: Normal. Other: Calf veins not optimally assessed due to body habitus. IMPRESSION: No evidence for deep venous thrombosis bilaterally. [facility]
[2020-02-05] MEDS: ATORVASTATIN 10 MG TABLET PO SCH (20:42)
[2020-02-05] MEDS ORDERED: MIN OIL/DIMETHICON/COCONUT OIL 92 GM TUBE TOP PRN (20:45)
[2020-02-06 05:07] LABS: BASOPHILS # (AUTO) 0.1 10^3/uL (0.0-0.1); BASOPHILS % (AUTO) 0.5 %; EOSINOPHILS # (AUTO) 0.2 10^3/uL (0.0-0.7); EOSINOPHILS % (AUTO) 1.7 %; HGB - HEMOGLOBIN 13.1 g/dL (14.0-18.0); LYMPHOCYTES # (AUTO) 1.1 10^3/uL (1.5-3.5); LYMPHOCYTES % (AUTO) 10.3 %; MEAN CORPUSCULAR HEMOGLOBIN 29.2 pg (27.0-31.0); MEAN CORPUSCULAR HGB CONC 29.8 g/dL (32.0-36.0); MEAN PLATELET VOLUME 10.5 fL (7.4-11.4); MONOCYTES # (AUTO) 0.9 10^3/uL (0.0-1.0); MONOCYTES % (AUTO) 8.6 %; NEUTROPHILS # (AUTO) 8.6 10^3/uL (1.5-6.6); NEUTROPHILS % (AUTO) 78.3 %; PLT - PLATELET COUNT 210 10^3/uL (130-450); RED BLOOD COUNT 4.48 10^6/uL (4.70-6.10); RED CELL DISTRIBUTION WIDTH 15.5 % (12.0-15.0)
[2020-02-06 05:21] LABS: ALBUMIN 2.9 g/dL (3.2-5.5); BILIRUBIN,DIRECT 0.1 mg/dL (0.1-0.5); BILIRUBIN,TOTAL 0.7 mg/dL (0.2-1.0); CALCIUM 8.6 mg/dL (8.5-10.3); CREATININE 1.4 mg/dL (0.6-1.2); MAGNESIUM 2.1 mg/dL (1.7-2.8); PHOSPHORUS 3.2 mg/dL (2.5-4.6); TOTAL PROTEIN 6.4 g/dL (6.7-8.2)
[2020-02-06] MEDS: SODIUM CHLORIDE FLUSH 0.9% 10 ML SYRINGE IVP SCH ×2 (05:48→09:03)
[2020-02-06] MEDS: FUROSEMIDE 40 MG/4 ML VIAL IVP SCH (05:48)
[2020-02-06] MEDS: LEVOTHYROXINE 75 MCG TABLET PO SCH (05:51)
[2020-02-06] MEDS: PANTOPRAZOLE 40 MG TABLET PO SCH (05:52)
[2020-02-06] MEDS: METOPROLOL SUCCINATE 50 MG TABLET PO SCH (06:15)
[2020-02-06] MEDS: SODIUM CHLORIDE FLUSH 0.9% 10 ML SYRINGE IVP PRN (06:44)
[2020-02-06] MEDS ORDERED: DIGOXIN 500 MCG/2 ML AMP IVP SCH (07:00)
--- NOTE | 2020-02-06 08:40 | XRAY Report ---
Reason: Hypoxia. Dyspnea. Procedure Date: 02/06/2020 Accession Number: [id number] / [id number] Procedure: XR - Chest 1 View X-Ray CPT Code: 16186 Final Report FULL RESULT: EXAM: CHEST RADIOGRAPHY EXAM DATE: 02/06/2020 08:09 AM. CLINICAL HISTORY: Hypoxia. Dyspnea. COMPARISON: CHEST 1 VIEW 02/05/2020 8:07 AM. TECHNIQUE: 1 view. FINDINGS: Lungs/Pleura: No significant change in coarse dense predominately interstitial opacities throughout the lungs, compatible with fibrotic changes. This may obscure an underlying acute infiltrate. Relatively shallow lung volumes. Mediastinum: Visualized heart and mediastinal border appears stable. Other: None. IMPRESSION: No significant change in coarse predominately interstitial markings bilaterally. [facility]
[2020-02-06] MEDS: AMIODARONE 200 MG TABLET PO SCH (08:57)
[2020-02-06] MEDS: APIXABAN 2.5 MG TABLET PO SCH (08:57)
[2020-02-06] MEDS: AZITHROMYCIN INJ 500 MG in SODIUM CHLORIDE 0.9% 250 ML IV SCH (09:00)
[2020-02-06] MEDS: GABAPENTIN 300 MG CAPSULE PO SCH (09:03)
[2020-02-06] MEDS: MAGNESIUM OXIDE 400 MG TABLET PO SCH (09:03)
[2020-02-06] MEDS: MULTIVITAMIN TABLET PO SCH (09:03)
[2020-02-06 09:05] LABS: ABG HCO3 25.6 mmol/L (22.0-26.0); ABG PCO2 37 mmHg (34-45); ABG PH 7.46 (7.35-7.45)
[2020-02-06 09:06] LABS: ABG BASE EXCESS 1.9 mmol/L (-2.0-3.0); ABG OXYGEN SATURATION 89 % (94-98); ABG TCO2 26.8 MMOL/L (21.0-29.0); ALLEN TEST POSITIVE
[2020-02-06 09:11] LABS: ABG PO2 53 mmHg (80-100)
[2020-02-06] MEDS: BUDESONIDE 0.5 MG/2 ML NEB INH SCH (09:11)
[2020-02-06] MEDS: FORMOTEROL FUMARATE NEB 20 MCG/2 ML INH SCH (09:11)
[2020-02-06] MEDS: IPRATROPIUM/ALBUTEROL 3 ML NEB INH SCH (09:11)
[2020-02-06] MEDS ORDERED: METOPROLOL 5 MG/5 ML VIAL IVP STA (09:28)
[2020-02-06] MEDS: cefTRIAXone 2 GM in SODIUM CHLORIDE 0.9% MINIBAG 100 ML IV SCH (10:05)
--- NOTE | 2020-02-06 10:12 | DISCHARGE SUMMARY ---
"Discharge Summary Admit Date: 02/04/20 Discharge Date: 02/06/20 Discharging Provider: Cruz Murray Primary Care Provider: Yocasta Epstein Code Status: Do Not Attempt Resuscitation Condition at Discharge: Critical Discharge Facility Name: [facility] - DIAGNOSES Admission Diagnoses: Acute on chronic respiratory failure with hypoxia Acute heart failure with preserved ejection fraction Acute kidney injury Community-acquired pneumonia Paroxysmal atrial fibrillation COPD Syncope Hyperkalemia Transaminitis Hypertension Hypothyroidism Discharge Diagnoses with Status of Each Condition: Acute on chronic respiratory failure with hypoxia - ongoing. This is presumed to be secondary to acute diastolic heart failure and community-acquired pneumonia in the setting of pulmonary fibrosis and COPD. He remains on BiPAP with an FiO2 of 70%. Oxygen saturations have remained from 88 to 90%. He is on 4-1/2 to 5 L of oxygen at baseline. Acute heart failure with preserved ejection fraction - ongoing. Echocardiogram was not repeated as he had one last month at [facility] which showed a preserved ejection fraction. His BNP was in the 400s on admission and has decreased to 200s. We are continuing him on 60 mg of IV Lasix twice daily. Paroxysmal atrial fibrillation with RVR - ongoing. He is on oral amiodarone, metoprolol, Eliquis at home. He has been in and out of atrial fibrillation during this hospitalization is required 2 doses of digoxin IV. His heart rate is currently in the 120s and in atrial fibrillation. He was given a one-time dose of amiodarone 150 mg IV prior to transfer. Troponin was negative on admission and EKG did not show signs of ischemia. Acute kidney injury - improving. Improving and presumed to be secondary to heart failure. Creatinine is down to 1.4 from 2.0 on admission. His baseline is 1.0. Renal ultrasound showed no obstruction. Community-acquired pneumonia - ongoing. He received 3 doses of azithromycin 5 mg IV. Today is day 3 of ceftriaxone IV. COPD - stable. Pulmonary fibrosis - ongoing. Syncope - resolved. It was presumed be secondary to his hypoxia. Transaminitis - improving. 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 His LFTs have slightly improved since admission. Hypertension - stable. Hypothyroidism - stable. - HPI History of Present Illness: This is a 85-year-old male with a history of COPD and pulmonary fibrosis on 4 to 5 L of oxygen via nasal cannula, paroxysmal atrial fibrillation, hypothyroidism who presents today after passing out at home. The patient states he has been feeling well the past few days this morning he went to go walk to the bathroom when he suddenly passed out. He does not recall any palpitations, chest pain, dyspnea prior to the syncope. His had found him unconscious next to the bed and she reported that he had slumped over but did not fall. When EMS arrived, he was found to have oxygen saturations in the low 70s and unresponsive. His neurologic status improved as oxygen was administered via mask. The patient reports he was hospitalized last month at [facility] for 1 week. He states that he saw his entry writer via telemedicine last week and he had been doing well without any complaints. He reports being compliant with his medications but did not take them today. He does report a cough but no fever, chills. He reports no worsening lower extremity edema or orthopnea. He denies any chest pain and he states that he actually does not feel any dyspnea whatsoever. He did have a flu and pneumonia vaccine this year. He reports that he has been home since the hospitalization although he did leave his house twice. One time he did not get out of his vehicle and the other time he did meet someone that he was selling his vehicle to. He otherwise reports no sick contacts. He states he has been using his oxygen throughout the day and night. He quit smoking over 30 years ago. He told the emergency department physician that he did not use his oxygen when he was going to the bathroom this morning. Was hospitalized last month at [facility] for approximately a week. He is here for an STEMI with heparin and for congestive heart failure with IV Lasix. He had acute kidney injury at that time as well and this improved with IV diuresis. His creatinine was 1.0 on discharge. He had a right heart cath prior to discharge which showed he was nearly euvolemic. He had a CTA of the chest which that was negative for pulmonary embolism. He was discharged on Eliquis and amiodarone for his atrial fibrillation as well as oral Lasix and he was asked to continue his losartan. In the emergency department, he was found to be hypoxic despite a facemask. He was placed on BiPAP with FiO2 of 50% and his saturations remained in the high 80s. A blood gas was obtained while he was on the facemask. His pH 7.31 and PCO2 was 49 with a PO2 of 53 on 15 L a minute. Labs are significant for a white count of 11. His creatinine was elevated at 2.2 with a BUN of 63. Potassium is also elevated at 6.1. His EKG showed nonspecific ST segment changes. He was given Lasix 40 mg IV in the emergency department. Medicine was consulted for admission. I did discuss goals of care the patient and he would like to be a DNR but he is okay with intubation as long as it is temporary. He would not want prolonged mechanical ventilation or tracheostomy. - CONSULTS | PROCEDURES Procedures: Lower extremity duplex was negative for DVT. - HOSPITAL COURSE Hospital Course: He was admitted to the intensive care unit for acute on chronic respiratory failure with hypoxia due to presumed exacerbation of heart failure with preserved ejection fraction and community-acquired pneumonia. He required BiPAP with an FiO2 of 65% to maintain oxygen saturation of 88%. He was treated with IV Lasix 40 mg twice daily and he started on ceftriaxone and azithromycin IV. He was checked for COVID-19 and this was negative. He did have acute kidney injury on admission and this improved with diuresis. His creatinine was 2.0 and it is now 1.4. His baseline is 1.0. He was continued on his home metoprolol and amiodarone for his atrial fibrillation and he was in a sinus rhythm and rate controlled on admission. Following day, we attempted to wean him off of BiPAP and onto an Oxymizer. His saturations dropped to the 70s on 10 L of oxygen. The pleth was poor and so an ABG was obtained which showed a pH 7.41, PCO2 of 39, PO2 of 36 on 10 L of oxygen via Oxymizer. He was immediately placed back on to BiPAP with an FiO2 of 70%. Did go into atrial fibrillation with rapid ventricular response that morning. He is given a dose of digoxin IV and Lopressor 5 mg IV and he converted back into a sinus rhythm with heart rates in the 70s. I did speak with his on hospital day 2 and she requested transfer to [facility] as that is where his entry writer is and where he was just hospitalized last month. I informed her that at this time, it is unlikely that management would change and to keep the patient here another day. There was no improvement after 48 hours and I felt it was reasonable to consider transfer. On hospital day 3, the patient went atrial fibrillation with rapid ventricular response again. He was given another dose of digoxin IV and Lopressor 5 mg IV. He remained tachycardic and age fibrillation with heart rates in the 130s. He reported no worsening dyspnea or palpitations. He remained on BiPAP with an FiO2 of 70% and he was mentating oxygen saturation of 89 to 90%. His diuresis has been increased to Lasix 60 mg IV twice daily. His BNP had improved from the 400s to the 200s. I discussed with the patient regard ing transfer and he was agreeable to this. 2 chest x-rays were performed his hospitalization which showed no change since admission. There are coarse dense predominately interstitial opacities at the lung compatible with fibrotic changes. Given he remains in atrial fibrillation prior to transfer with heart rates in the 120s to 140s. He was given a one-time dose of amiodarone IV 150 mg I spoke with Dr[address] Billings the tile grader at [facility] who graciously accepted the patient in transfer. Dr. Billings did have concern about transferring the patient on BiPAP given his significant hypoxia. He also had concerned that the patient was intubated, it would be difficult to wean him off of the ventilator given his pulmonary fibrosis. I discussed these concerns with the patient who was previously a DNR but was okay with intubation. The patient stated that he no longer wants to be intubated even if he were to decline from a respiratory standpoint. He is agreeable to being transferred on BiPAP and he understands there is a risk of deterioration with transfer. He stated that even if he were to decline, he would not want mechanical ventilation. I did discuss this with his as well and she was updated on the plan to transfer him to [facility]. He will be transferred via [facility]. - ALLERGIES Allergies/Adverse Reactions: Allergies Allergy/AdvReac Type Severity Reaction Status Date / Time morphine Allergy Hallucinati Verified 02/04/20 09:17 ons - MEDICATIONS Home Medications: Ambulatory Orders Medication Instructions Recorded Confirmed Albuterol [Proventil Hfa] 2 puffs INH Q4H PRN 02/04/20 02/04/20 Amiodarone [Pacerone] 200 mg PO DAILY 02/04/20 02/04/20 Apixaban [Eliquis] 5 mg PO BID 02/04/20 02/04/20 Felodipine [Felodipine ER] 5 mg PO DAILY 02/04/20 02/04/20 Fluticasone 220 Mcg [Flovent] 2 puffs INH BID 02/04/20 02/04/20 Furosemide 20 mg PO DAILY 02/04/20 02/04/20 Gabapentin 300 mg PO BID 02/04/20 02/04/20 Levothyroxine Sodium [Synthroid] 150 mcg PO QDAC 02/04/20 02/04/20 Losartan Potassium 100 mg PO DAILY 02/04/20 02/04/20 Magnesium Oxide [Mag Ox] 400 mg PO DAILY 02/04/20 02/04/20 Metoprolol Succinate [Toprol Xl] 100 mg PO DAILY 02/04/20 02/04/20 Multivitamin [Theragran] 1 tab PO DAILY 02/04/20 02/04/20 Omeprazole 20 mg PO QDAC 02/04/20 02/04/20 Oxycodone HCl/Acetaminophen 1 tab PO QPM 02/04/20 02/04/20 [Oxycodone-Acetaminophen 5-325] Salmeterol Xinafoate [Serevent 1 puffs INH BID 02/04/20 02/04/20 Diskus] Simvastatin 40 mg PO QPM 02/04/20 02/04/20 Tiotropium [place] [Spiriva] 18 mcg INH DAILY 02/04/20 02/04/20 - PHYSICAL EXAM AT DISCHARGE General Appearance: positive: No acute distress, Alert Eyes Bilateral: positive: Normal inspection, PERRL, Conjunctivae nml ENT: positive: ENT inspection nml, Other (BiPAP mask in place.) Respiratory: positive: Other (He is tachypneic and appears in mild respiratory distress. There are bibasilar crackles.) Cardiovascular: positive: No murmur, Irregularly irregular, Tachycardia. negative: Systolic murmur, Diastolic murmur Abdomen: positive: Non-tender, No distention. negative: Tenderness Skin: positive: Warm, Dry Extremities: positive: Full ROM, No pedal edema Neurologic/Psychiatric: positive: Oriented x3, Motor nml. negative: Disoriented to person, Disoriented to place, Disoriented to time Physical Exam Other/Comments: Vital Signs - 24 hr 02/05/20 02/05/20 02/05/20 11:33 12:00 13:00 Temperature 36.5 C 36.7 C Heart Rate 65 Heart Rate [ 70 71 Monitoring electrodes] Respiratory 25 H 24 Rate Blood Pressure Blood Pressure 115/59 L 129/65 [Left Brachial artery] O2 Saturation 92 88 L 02/05/20 02/05/20 02/05/20 13:25 13:33 14:00 Temperature 36.7 C Heart Rate 69 71 Heart Rate [ 70 Monitoring electrodes] Respiratory 28 H 24 Rate Blood Pressure Blood Pressure 109/58 L [Left Brachial artery] O2 Saturation 86 L 02/05/20 02/05/20 02/05/20 15:00 15:16 16:00 Temperature 36.7 C 37.1 C Heart Rate 69 Heart Rate [ 69 69 Monitoring electrodes] Respiratory 22 21 Rate Blood Pressure Blood Pressure 109/60 111/60 [Left Brachial artery] O2 Saturation 87 L 89 L 02/05/20 02/05/20 02/05/20 17:00 17:20 18:00 Temperature Heart Rate 73 Heart Rate [ 64 71 Monitoring electrodes] Respiratory 21 31 H 27 H Rate Blood Pressure Blood Pressure 104/56 L 121/65 [Left Brachial artery] O2 Saturation 90 L 78 L 02/05/20 02/05/20 02/05/20 18:26 19:00 19:30 Temperature Heart Rate 68 67 Heart Rate [ 71 Monitoring electrodes] Respiratory 26 H Rate Blood Pressure Blood Pressure 115/64 [Left Brachial artery] O2 Saturation 92 02/05/20 02/05/20 02/05/20 20:00 21:00 21:30 Temperature 36.3 C L Heart Rate 65 Heart Rate [ 64 66 Monitoring electrodes] Respiratory 25 H 23 26 H Rate Blood Pressure Blood Pressure 110/65 113/63 [Left Brachial artery] O2 Saturation 90 L 91 L 02/05/20 02/05/20 02/05/20 22:00 23:00 23:45 Temperature Heart Rate 70 Heart Rate [ 66 65 Monitoring electrodes] Respiratory 24 17 Rate Blood Pressure Blood Pressure 114/64 130/44 L [Left Brachial artery] O2 Saturation 96 93 02/06/20 02/06/20 02/06/20 00:00 01:00 01:30 Temperature Heart Rate 67 Heart Rate [ 65 65 Monitoring electrodes] Respiratory 22 20 Rate Blood Pressure Blood Pressure 115/61 105/54 L [Left Brachial artery] O2 Saturation 94 94 02/06/20 02/06/20 02/06/20 02:00 03:00 03:35 Temperature Heart Rate 88 Heart Rate [ 69 82 Monitoring electrodes] Respiratory 18 26 H Rate Blood Pressure Blood Pressure 117/49 L 107/46 L [Left Brachial artery] O2 Saturation 90 L 93 02/06/20 02/06/20 02/06/20 04:00 05:00 05:21 Temperature 37.2 C Heart Rate 83 Heart Rate [ 85 84 Monitoring electrodes] Respiratory 22 24 Rate Blood Pressure Blood Pressure 97/52 L 117/62 [Left Brachial artery] O2 Saturation 91 L 90 L 02/06/20 02/06/20 02/06/20 06:04 06:43 06:46 Temperature 36.6 C Heart Rate 138 H Heart Rate [ 132 H 138 H Monitoring electrodes] Respiratory 24 23 Rate Blood Pressure Blood Pressure 103/73 97/68 [Left Brachial artery] O2 Saturation 90 L 88 L 02/06/20 02/06/20 02/06/20 07:00 08:00 08:47 Temperature 36.2 C L Heart Rate 157 H Heart Rate [ 132 H 135 H Monitoring electrodes] Respiratory 20 31 H Rate Blood Pressure Blood Pressure 95/74 95/79 [Left Brachial artery] O2 Saturation 97 90 L 02/06/20 02/06/20 02/06/20 09:00 09:11 09:45 Temperature Heart Rate 124 H Heart Rate [ 146 H 123 H Monitoring electrodes] Respiratory 25 H 25 H 26 H Rate Blood Pressure 95/73 Blood Pressure 95/73 95/73 [Left Brachial artery] O2 Saturation 89 L 90 L 02/06/20 02/06/20 02/06/20 09:50 10:00 10:50 Temperature Heart Rate 151 H Heart Rate [ 111 H 128 H Monitoring electrodes] Respiratory 24 27 H Rate Blood Pressure Blood Pressure 85/73 L 91/73 [Left Brachial artery] O2 Saturation 89 L 88 L 02/06/20 11:00 Temperature Heart Rate Heart Rate [ 145 H Monitoring electrodes] Respiratory 29 H Rate Blood Pressure Blood Pressure 89/70 L [Left Brachial artery] O2 Saturation 89 L Oxygen O2 Source BIPAP Oxygen Flow Rate 12 - LABS Result Diagrams: 02/06/20 04:25 02/06/20 04:25 Other Lab Results: Laboratory Tests 02/04/20 02/04/20 02/04/20 10:15 10:20 10:20 WBC 11.0 H RBC 4.72 Hgb 13.8 L Hct 46.8 MCV 99.2 H MCH 29.2 MCHC 29.5 L RDW 15.6 H Plt Count 220 MPV 10.0 Neut # (Auto) 9.6 H Lymph # (Auto) 0.4 L [place] # (Auto) 0.9 Eos # (Auto) 0.0 Baso # (Auto) 0.0 Absolute Nucleated RBC 0.00 Nucleated RBC % 0.0 Bld Gas Analysis Time 1015 Sample Site RIGHT BRACHIAL ABG pH 7.31 L ABG pCO2 49 H ABG pO2 53 L* ABG HCO3 24.1 ABG Total CO2 25.6 ABG O2 Saturation 82 L* ABG Oximetry Spot Check ABG Base Excess -2.6 L Candelario Test POSITIVE Respiration Rate O2 Delivery Device NON REBREATHER MASK O2 Liters/Min 15.00 Vent Mode FiO2 100.00 EPAP IPAP Sodium 140 Potassium 6.1 H* Chloride 104 Carbon Dioxide 26 Anion Gap 10.0 BUN 63 H Creatinine 2.2 H Estimated GFR (MDRD) 29 L Glucose 138 H Lactic Acid Calcium 8.5 Phosphorus Magnesium Total Bilirubin 0.8 Direct Bilirubin AST 182 H ALT 195 H Alkaline Phosphatase 69 Troponin I High Sens B-Natriuretic Peptide Total Protein 7.0 Albumin 3.2 Globulin 3.8 Albumin/Globulin Ratio 0.8 L Lipase 30 Urine Color Urine Clarity Urine pH Ur Specific [place] Urine Protein Urine Glucose (UA) Urine Ketones Urine Occult Blood Urine Nitrite Urine Bilirubin Urine Urobilinogen Ur Leukocyte Esterase Ur Microscopic Review Urine Culture Comments Nasal Screen MRSA (PCR) Coronavirus (PCR) 02/04/20 02/04/20 02/04/20 10:20 10:20 10:56 WBC RBC Hgb Hct MCV MCH MCHC RDW Plt Count MPV Neut # (Auto) Lymph # (Auto) [place] # (Auto) Eos # (Auto) Baso # (Auto) Absolute Nucleated RBC Nucleated RBC % Bld Gas Analysis Time Sample Site ABG pH ABG pCO2 ABG pO2 ABG HCO3 ABG Total CO2 ABG O2 Saturation ABG Oximetry Spot Check ABG Base Excess Candelario Test Respiration Rate O2 Delivery Device O2 Liters/Min Vent Mode FiO2 EPAP IPAP Sodium Potassium Chloride Carbon Dioxide Anion Gap BUN Creatinine Estimated GFR (MDRD) Glucose Lactic Acid 1.6 Calcium Phosphorus Magnesium Total Bilirubin Direct Bilirubin AST ALT Alkaline Phosphatase Troponin I High Sens 12.3 B-Natriuretic Peptide 421 H Total Protein Albumin Globulin Albumin/Globulin Ratio Lipase Urine Color Urine Clarity Urine pH Ur Specific [place] Urine Protein Urine Glucose (UA) Urine Ketones Urine Occult Blood Urine Nitrite Urine Bilirubin Urine Urobilinogen Ur Leukocyte Esterase Ur Microscopic Review Urine Culture Comments Nasal Screen MRSA (PCR) Coronavirus (PCR) 02/04/20 02/04/20 02/04/20 11:45 13:48 15:24 WBC RBC Hgb Hct MCV MCH MCHC RDW Plt Count MPV Neut # (Auto) Lymph # (Auto) [place] # (Auto) Eos # (Auto) Baso # (Auto) Absolute Nucleated RBC Nucleated RBC % Bld Gas Analysis Time Sample Site ABG pH ABG pCO2 ABG pO2 ABG HCO3 ABG Total CO2 ABG O2 Saturation ABG Oximetry Spot Check ABG Base Excess Candelario Test Respiration Rate O2 Delivery Device O2 Liters/Min Vent Mode FiO2 EPAP IPAP Sodium 139 Potassium 5.7 H Chloride 101 Carbon Dioxide 27 Anion Gap 11.0 BUN 59 H Creatinine 2.1 H Estimated GFR (MDRD) 30 L Glucose 112 H Lactic Acid Calcium 8.5 Phosphorus Magnesium Total Bilirubin Direct Bilirubin AST ALT Alkaline Phosphatase Troponin I High Sens B-Natriuretic Peptide Total Protein Albumin Globulin Albumin/Globulin Ratio Lipase Urine Color YELLOW Urine Clarity CLEAR Urine pH 5.0 Ur Specific [place] 1.025 Urine Protein NEGATIVE Urine Glucose (UA) NEGATIVE Urine Ketones NEGATIVE Urine Occult Blood NEGATIVE Urine Nitrite NEGATIVE Urine Bilirubin NEGATIVE Urine Urobilinogen 0.2 (NORMAL) Ur Leukocyte Esterase NEGATIVE Ur Microscopic Review NOT INDICATED Urine Culture Comments NOT INDICATED Nasal Screen MRSA (PCR) Coronavirus (PCR) NEGATIVE 02/04/20 02/04/20 02/04/20 15:24 15:37 16:55 WBC RBC Hgb Hct MCV MCH MCHC RDW Plt Count MPV Neut # (Auto) Lymph # (Auto) [place] # (Auto) Eos # (Auto) Baso # (Auto) Absolute Nucleated RBC Nucleated RBC % Bld Gas Analysis Time Sample Site ABG pH ABG pCO2 ABG pO2 ABG HCO3 ABG Total CO2 ABG O2 Saturation ABG Oximetry Spot Check ABG Base Excess Candelario Test Respiration Rate O2 Delivery Device O2 Liters/Min Vent Mode FiO2 EPAP IPAP Sodium Potassium Chloride Carbon Dioxide Anion Gap BUN Creatinine Estimated GFR (MDRD) Glucose Lactic Acid Calcium Phosphorus Magnesium Total Bilirubin Direct Bilirubin AST ALT Alkaline Phosphatase Troponin I High Sens 19.6 15.6 B-Natriuretic Peptide Total Protein Albumin Globulin Albumin/Globulin Ratio Lipase Urine Color Urine Clarity Urine pH Ur Specific [place] Urine Protein Urine Glucose (UA) Urine Ketones Urine Occult Blood Urine Nitrite Urine Bilirubin Urine Urobilinogen Ur Leukocyte Esterase Ur Microscopic Review Urine Culture Comments Nasal Screen MRSA (PCR) NEGATIVE Coronavirus (PCR) 02/05/20 02/05/20 02/05/20 04:30 04:30 08:00 WBC 10.6 RBC 4.49 L Hgb 12.7 L Hct 43.3 MCV 96.4 H MCH 28.3 MCHC 29.3 L RDW 15.9 H Plt Count 211 MPV 10.2 Neut # (Auto) 8.6 H Lymph # (Auto) 1.1 L [place] # (Auto) 0.7 Eos # (Auto) 0.1 Baso # (Auto) 0.1 Absolute Nucleated RBC 0.00 Nucleated RBC % 0.0 Bld Gas Analysis Time 0800 Sample Site LEFT RADIAL ABG pH 7.41 ABG pCO2 39 ABG pO2 36 L* ABG HCO3 24.2 ABG Total CO2 25.4 ABG O2 Saturation 72 L* ABG Oximetry Spot Check ABG Base Excess -0.2 Candelario Test POSITIVE Respiration Rate O2 Delivery Device OXYMIZER O2 Liters/Min 10.00 Vent Mode FiO2 EPAP IPAP Sodium 139 Potassium 4.9 Chloride 107 Carbon Dioxide 24 Anion Gap 8.0 BUN 48 H Creatinine 1.7 H Estimated GFR (MDRD) 38 L Glucose 102 H Lactic Acid Calcium 8.5 Phosphorus 3.3 Magnesium 2.8 Total Bilirubin Direct Bilirubin AST ALT Alkaline Phosphatase Troponin I High Sens B-Natriuretic Peptide Total Protein Albumin Globulin Albumin/Globulin Ratio Lipase Urine Color Urine Clarity Urine pH Ur Specific [place] Urine Protein Urine Glucose (UA) Urine Ketones Urine Occult Blood Urine Nitrite Urine Bilirubin Urine Urobilinogen Ur Leukocyte Esterase Ur Microscopic Review Urine Culture Comments Nasal Screen MRSA (PCR) Coronavirus (PCR) 02/06/20 02/06/20 02/06/20 04:25 04:25 04:25 WBC 11.0 H RBC 4.48 L Hgb 13.1 L Hct 43.9 MCV 98.0 H MCH 29.2 MCHC 29.8 L RDW 15.5 H Plt Count 210 MPV 10.5 Neut # (Auto) 8.6 H Lymph # (Auto) 1.1 L [place] # (Auto) 0.9 Eos # (Auto) 0.2 Baso # (Auto) 0.1 Absolute Nucleated RBC 0.00 Nucleated RBC % 0.0 Bld Gas Analysis Time Sample Site ABG pH ABG pCO2 ABG pO2 ABG HCO3 ABG Total CO2 ABG O2 Saturation ABG Oximetry Spot Check ABG Base Excess Candelario Test Respiration Rate O2 Delivery Device O2 Liters/Min Vent Mode FiO2 EPAP IPAP Sodium 141 Potassium 4.2 Chloride 102 Carbon Dioxide 30 Anion Gap 9.0 BUN 43 H Creatinine 1.4 H Estimated GFR (MDRD) 48 L Glucose 113 H Lactic Acid Calcium 8.6 Phosphorus 3.2 Magnesium 2.1 Total Bilirubin 0.7 Direct Bilirubin 0.1 AST 91 H ALT 192 H Alkaline Phosphatase 55 Troponin I High Sens B-Natriuretic Peptide 215 H Total Protein 6.4 L Albumin 2.9 L Globulin 3.5 Albumin/Globulin Ratio Lipase Urine Color Urine Clarity Urine pH Ur Specific [place] Urine Protein Urine Glucose (UA) Urine Ketones Urine Occult Blood Urine Nitrite Urine Bilirubin Urine Urobilinogen Ur Leukocyte Esterase Ur Microscopic Review Urine Culture Comments Nasal Screen MRSA (PCR) Coronavirus (PCR) 02/06/20 08:44 WBC RBC Hgb Hct MCV MCH MCHC RDW Plt Count MPV Neut # (Auto) Lymph # (Auto) [place] # (Auto) Eos # (Auto) Baso # (Auto) Absolute Nucleated RBC Nucleated RBC % Bld Gas Analysis Time 0853 Sample Site RIGHT RADIAL ABG pH 7.46 H ABG pCO2 37 ABG pO2 53 L* ABG HCO3 25.6 ABG Total CO2 26.8 ABG O2 Saturation 89 L ABG Oximetry Spot Check 89 ABG Base Excess 1.9 Candelario Test POSITIVE Respiration Rate 28 O2 Delivery Device BiPAP O2 Liters/Min Vent Mode SYNCHRONOUS/TIMES FiO2 70.00 EPAP 5 IPAP 9 Sodium Potassium Chloride Carbon Dioxide Anion Gap BUN Creatinine Estimated GFR (MDRD) Glucose Lactic Acid Calcium Phosphorus Magnesium Total Bilirubin Direct Bilirubin AST ALT Alkaline Phosphatase Troponin I High Sens B-Natriuretic Peptide Total Protein Albumin Globulin Albumin/Globulin Ratio Lipase Urine Color Urine Clarity Urine pH Ur Specific [place] Urine Protein Urine Glucose (UA) Urine Ketones Urine Occult Blood Urine Nitrite Urine Bilirubin Urine Urobilinogen Ur Leukocyte Esterase Ur Microscopic Review Urine Culture Comments Nasal Screen MRSA (PCR) Coronavirus (PCR) - DIAGNOSTIC IMAGING Diagnostic Imaging Results: Final report reviewed - TIME SPENT Time Spent in Discharge (Minutes): 45"
[2020-02-06 11:11] VITALS: BP 89/70
[2020-02-06] MEDS ORDERED: AMIODARONE 150 MG/3 ML VIAL IVP STA (11:11)
[2020-02-06] MEDS ORDERED: AMIODARONE 150 MG/100 ML 100 ML IV ONE (12:00)
== END 2020-02-06 12:00 | disposition short-term general hospital (02) | DRG 189 ==
LOC: EDUNIT# → ED 09:00 → ICU 13:38
PROVIDERS: ADMIT Internal Medicine; ATTEND Internal Medicine
DX: J96.21 Acute and chronic respiratory failure with hypoxia (principal); J18.9 Pneumonia, unspecified organism; I50.813 Acute on chronic right heart failure; I50.31 Acute diastolic (congestive) heart failure; N17.9 Acute kidney failure, unspecified; J44.9 Chronic obstructive pulmonary disease, unspecified; J43.9 Emphysema, unspecified; Z20.828 Contact with and (suspected) exposure to other viral communicable diseases; I11.0 Hypertensive heart disease with heart failure; J84.10 Pulmonary fibrosis, unspecified; I48.0 Paroxysmal atrial fibrillation; E87.5 Hyperkalemia; E89.0 Postprocedural hypothyroidism; K76.1 Chronic passive congestion of liver; E78.00 Pure hypercholesterolemia, unspecified; K21.9 Gastro-esophageal reflux disease without esophagitis; M19.90 Unspecified osteoarthritis, unspecified site; Z66 Do not resuscitate; Z96.659 Presence of unspecified artificial knee joint; I25.2 Old myocardial infarction; Z79.01 Long term (current) use of anticoagulants; Z99.81 Dependence on supplemental oxygen; Z79.51 Long term (current) use of inhaled steroids; Z87.891 Personal history of nicotine dependence
CPT/HCPCS: 36415; 36600; 70450; 71045; 76775; 80048; 80053; 80076; 81003; 82803; 83605; 83690; 83735; 83880; 84100; 84484; 85025; 87040; 87150; 87205; 93005; 93970; 94640; 94660; 99285; A6250; A9270; J0282; J1815; J3490; J7626; U0004; 81001; 81599; 87070; 87086

== ENCOUNTER 2020-11-26 10:46 | Outpatient (CLI) | payer MEDICARE, OTHER | END 2020-11-26 10:47 | disposition E | LOC: EMS 10:46 | DX: I46.9 Cardiac arrest, cause unspecified (principal) | CPT/HCPCS: A0425; A0429 ==